=== PATIENT | male | born 1950 | race Caucasian/White ===

== ENCOUNTER → 2016-07-29 | Outpatient (CLI) | payer MEDICARE ==
[~2016-07-29] VITALS: Ht 175.3 cm; Wt 108.8 kg
[~2016-07-29] MED LIST: ATOR1TAB21 PO; NAPR500T2 PO; NEXI20GR PO; NS 1,000 ML IV ONE; VITA200016 PO
[2016-07-29 10:40] VITALS: BP 143/70
== END | disposition home or self-care (01) ==
LOC: M OPP 08:15
PROVIDERS: ATTEND Internal Medicine Gastroenterology
DX: Z12.11 Encounter for screening for malignant neoplasm of colon (principal); D12.5 Benign neoplasm of sigmoid colon; D12.3 Benign neoplasm of transverse colon; K57.30 Diverticulosis of large intestine without perforation or abscess without bleeding; K64.4 Residual hemorrhoidal skin tags; K64.8 Other hemorrhoids; Z86.010 Personal history of colon polyps; E78.5 Hyperlipidemia, unspecified; R12 Heartburn; R73.03 Prediabetes; K21.9 Gastro-esophageal reflux disease without esophagitis; Z79.899 Other long term (current) drug therapy; Z80.3 Family history of malignant neoplasm of breast

== ENCOUNTER → 2018-07-21 | Outpatient (CLI) | payer MEDICARE ==
[~2018-07-21] MED LIST changes: +NAPR-885 PO; -NAPR500T2 PO; -NS 1,000 ML IV ONE
--- NOTE | 2018-07-21 16:32 | REP ---
Right shoulder three views History: Pain There is no acute fracture or dislocation. The glenohumeral joint space is normal in appearance. There is mild narrowing of the acromioclavicular joint space. Impression: Degenerative change as described above. Electronically Signed by Patricio Beauchamp MD 07/21/2018 04:23 P
== END ==
LOC: M WUC 16:00
PROVIDERS: ATTEND Physician Assistant
DX: M19.011 Primary osteoarthritis, right shoulder (principal)

== ENCOUNTER → 2019-10-14 | Outpatient (REF) | payer MEDICARE ==
[~2019-10-14] MED LIST changes: +LISI10TA15 PO; +OMEP1CAP73 PO
== END ==
LOC: M LAB REF 18:59
PROVIDERS: ATTEND Physician Assistant
DX: N45.1 Epididymitis (principal)

== ENCOUNTER → 2019-10-26 | Outpatient (CLI) | payer MEDICARE ==
--- NOTE | 2019-11-11 11:55 | REP ---
SCROTAL ULTRASOUND CLINICAL: Epididymitis. TECHNIQUE: Real-time mandujano scale and color Doppler evaluation using linear high frequency transducer. COMPARISON: None. FINDINGS: The bilateral testicles are normal in appearance and vascularity without torsion, infectious/inflammatory process, or mass lesion. Small bilateral hydroceles are identified. A simple right epididymal cyst measures 5 x 3 x 3 mm. Varicoceles are noted bilaterally measuring up to 4.2 mm on Valsalva on the right and 4.3 mm on Valsalva on the left. There is a somewhat heterogeneous hypoechoic mass-like area at the left epididymal tail measuring 14 x 15 x 15 mm with some elements of vascularity, but does not appear hyperemic. Right testicle measures 4.1 x 2.3 x 3.2 cm. Left testicle measures 3.9 x 2.5 x 2.7 cm. IMPRESSION: * Hypoechoic heterogeneous mildly vascular mass-like area at the left epididymal tail. Finding is nonspecific. No prior examinations are available for comparison. Differential diagnosis includes, but is not limited to sequela of prior epididymitis, as well as mass lesion. * Bilateral varicoceles. * Small nonspecific incidental bilateral hydroceles and incidental simple right epididymal cyst. MTDD
== END ==
LOC: M RAD 09:47
PROVIDERS: ATTEND Physician Assistant
DX: N45.1 Epididymitis (principal); N43.3 Hydrocele, unspecified

== ENCOUNTER → 2019-11-06 | Outpatient (CLI) | payer MEDICARE | LOC: M LABSMTC 10:39 | PROVIDERS: ATTEND Anesthesiology | DX: Z01.812 Encounter for preprocedural laboratory examination (principal); Z20.828 Contact with and (suspected) exposure to other viral communicable diseases | CPT/HCPCS: C9803; U0003 ==

== ENCOUNTER 2019-11-11 10:24 | Day surgery (SDC) | payer MEDICARE ==
[~2019-11-11] VITALS: Ht 175.3 cm; Wt 96.2 kg
[~2019-11-11 10:24] MED LIST changes: +LIDOCAINE 2% 100MG/5ML SDV (FOR ANES.) As Ordered ONE; +NS 1,000 ML IV ONE; +propofoL 200 MG/20 ML VIAL As Ordered ONE
--- NOTE | 2019-11-11 11:36 | ROOR ---
Patient Name: Jayden Richardson Procedure Date: 11/11/2019 11:14 AM Date of : 1950 Age: 69 Room: [facility] Gender: Male Note Status: Finalized Procedure: Upper GI endoscopy Indications: Heartburn Providers: Tyler RANDLE MD Referring MD: MARY HENDERSON MD Requesting Provider: Medicines: Monitored Anesthesia Care Complications: No immediate complications. Procedure: Pre-Anesthesia Assessment: - The heart rate, respiratory rate, oxygen saturations, blood pressure, adequacy of pulmonary ventilation, and response to care were monitored throughout the procedure. The Endoscope was introduced through the mouth, and advanced to the second part of duodenum. The upper GI endoscopy was accomplished without difficulty. The patient tolerated the procedure well. Findings: Moderately severe esophagitis was found at the gastroesophageal junction. Two cratered esophageal ulcers with no bleeding were found at the gastroesophageal junction. Biopsies were taken with a cold forceps for histology. Scattered moderate inflammation characterized by erosions and erythema was found in the gastric antrum. Biopsies were taken with a cold forceps for histology. A small hiatal hernia was present. The exam was otherwise without abnormality. Impression: - Moderate to severe severe ulcerative esophagitis. Biopsied. - Moderate antral gastritis. Biopsied. - Small hiatal hernia. - Two small duodenal lipomas. - The examination was otherwise normal. Recommendation: - Use Prilosec (omeprazole) 40 mg PO daily. - Take omeprazole EVERY DAY. - No ibuprofen, naproxen, or other non-steroidal anti-inflammatory drugs. - Telephone endoscopist for pathology results in 2 weeks. Tyler Randle MD Tyler RANDLE MD 11/11/2019 11:35:07 AM Electronically signed by Tyler RANDLE MD Number of Addenda: 0 Note Initiated On: 11/11/2019 11:14 AM Estimated Blood Loss: Estimated blood loss: none.
[2019-11-11] MEDS ORDERED: propofoL 200 MG/20 ML VIAL As Ordered ONE (11:41)
--- NOTE | 2019-11-11 11:48 | ROOR ---
Patient Name: Jayden Richardson Procedure Date: 11/11/2019 11:15 AM Date of : 1950 Age: 69 Room: [facility] Gender: Male Note Status: Finalized Procedure: Colonoscopy Indications: High risk colon cancer surveillance: Personal history of colonic polyps Providers: Tyler RANDLE MD Referring MD: MARY HENDERSON MD Requesting Provider: Medicines: Monitored Anesthesia Care Complications: No immediate complications. Procedure: Pre-Anesthesia Assessment: - The heart rate, respiratory rate, oxygen saturations, blood pressure, adequacy of pulmonary ventilation, and response to care were monitored throughout the procedure. The Colonoscope was introduced through the anus and advanced to the terminal ileum, with identification of the appendiceal orifice and IC valve. The colonoscopy was performed without difficulty. The patient tolerated the procedure well. The quality of the bowel preparation was fair. Findings: The perianal and digital rectal examinations were normal. Mild sigmoid diverticulosis and small internal hemorrhoids. The entire examined colon appeared normal on direct and retroflexion views. Impression: - Preparation of the colon was fair. - Mild sigmoid diverticulosis and small internal hemorrhoids. - The entire examined colon is otherwise normal on direct and retroflexion views. - No specimens collected. Recommendation: - Repeat colonoscopy in 5 years for surveillance. Tyler Randle MD Tyler RANDLE MD 11/11/2019 11:47:30 AM Electronically signed by Tyler RANDLE MD Number of Addenda: 0 Note Initiated On: 11/11/2019 11:15 AM Estimated Blood Loss: Estimated blood loss: none.
[2019-11-11 12:10] VITALS: BP 109/70
== END 2019-11-11 12:11 | disposition home or self-care (01) ==
LOC: M OPP 10:24
PROVIDERS: ATTEND Internal Medicine Gastroenterology
DX: Z12.11 Encounter for screening for malignant neoplasm of colon (principal); Z86.010 Personal history of colon polyps; K21.9 Gastro-esophageal reflux disease without esophagitis; K22.10 Ulcer of esophagus without bleeding; K29.70 Gastritis, unspecified, without bleeding; K44.9 Diaphragmatic hernia without obstruction or gangrene; R12 Heartburn; K57.30 Diverticulosis of large intestine without perforation or abscess without bleeding; I51.9 Heart disease, unspecified; Z79.899 Other long term (current) drug therapy
CPT/HCPCS: 43239; 88305; G0105

== ENCOUNTER → 2020-03-03 | Outpatient (CLI) | payer MEDICARE ==
[~2020-03-03] MED LIST changes: -LIDOCAINE 2% 100MG/5ML SDV (FOR ANES.) As Ordered ONE; -NS 1,000 ML IV ONE; -propofoL 200 MG/20 ML VIAL As Ordered ONE
[2020-03-03 19:23] LABS: APPEARANCE, URINE CLEAR (CLEAR); BACTERIA, URINE AUTO NEGATIVE (NEGATIVE); BILIRUBIN, URINE AUTO NEGATIVE (NEGATIVE); BLOOD, URINE BLOOD NEGATIVE (NEGATIVE); COLOR, URINE YELLOW (YELLOW); GLUCOSE, URINE (UA) AUTO NEGATIVE (NEGATIVE); KETONE, URINE AUTO NEGATIVE (NEGATIVE); LEUKOCYTE ESTERASE, URINE AUTO NEGATIVE (NEGATIVE); NITRITE, URINE AUTO NEGATIVE (NEGATIVE); PROTEIN, URINE AUTO NEGATIVE (NEGATIVE); RBC, URINE AUTO 1 /HPF (0-3); SPECIFIC GRAVITY URINE AUTO 1.018 (1.002-1.035); SQUAMOUS EPITHELIAL CELL UR AU 0 /HPF (0-6); UROBILINOGEN, URINE AUTO 0.2 mg/dL (0.0-2.0); WBC, URINE AUTO 0 /HPF (0-3)
== END ==
LOC: M WUC 15:32
PROVIDERS: ATTEND Physician Assistant
DX: R31.21 Asymptomatic microscopic hematuria (principal)

== ENCOUNTER → 2020-05-28 | Outpatient (CLI) | payer MEDICARE ==
[~2020-05-28] MED LIST changes: +CALC-132 PO; +CVS1CAP2 PO; +D31000TA2 PO; +OMEP40CA97 PO; +VITMTA PO
== END ==
LOC: M LABSMTC 09:57
PROVIDERS: ATTEND Anesthesiology
DX: Z01.812 Encounter for preprocedural laboratory examination (principal); Z20.828 Contact with and (suspected) exposure to other viral communicable diseases

== ENCOUNTER 2020-06-02 12:56 | Day surgery (SDC) | payer MEDICARE ==
[~2020-06-02] VITALS: Ht 175.3 cm; Wt 106.8 kg
[~2020-06-02 12:56] MED LIST changes: +LIDOCAINE 2% 100MG/5ML SDV (FOR ANES.) As Ordered ONE; +NS 1,000 ML IV ONE; +propofoL 200 MG/20 ML VIAL As Ordered ONE
[2020-06-02] MEDS ORDERED: fentaNYL 100 MCG/2 ML INJECTION (J3010) As Ordered ONE (13:20)
--- NOTE | 2020-06-02 13:37 | ROOR ---
Patient Name: Jayden Richardson Procedure Date: 06/02/2020 1:18 PM Date of : 1950 Age: 70 Room: [facility] Gender: Male Note Status: Finalized Procedure: Upper GI endoscopy Indications: Heartburn, Follow-up of Wagner's esophagus Providers: Tyler COOPER MD Referring MD: Cherelle Cullen NP Requesting Provider: Medicines: Monitored Anesthesia Care Complications: No immediate complications. Procedure: Pre-Anesthesia Assessment: - The heart rate, respiratory rate, oxygen saturations, blood pressure, adequacy of pulmonary ventilation, and response to care were monitored throughout the procedure. The Endoscope was introduced through the mouth, and advanced to the second part of duodenum. The upper GI endoscopy was accomplished without difficulty. The patient tolerated the procedure well. Findings: There were esophageal mucosal changes consistent with short-segment Wagner's esophagus present in the lower third of the esophagus. The maximum longitudinal extent of these mucosal changes was 2 cm in length. Mucosa was biopsied with a cold forceps for histology from 37 to 39 cm from the incisors. A total of 2 specimen bottles were sent to pathology. A medium-sized hiatal hernia was present. The exam of the stomach was otherwise normal. There was a small lipoma in the second portion of the duodenum. The exam of the duodenum was otherwise normal. Impression: - Esophageal mucosal changes consistent with short-segment Wagner's esophagus. Biopsied. - Medium-sized hiatal hernia. - Small duodenal lipoma. - The examination was otherwise normal. Recommendation: - Await pathology results. - Use Prilosec (omeprazole) 40 mg PO daily indefinitely. - Repeat upper endoscopy in 3 years for surveillance of Wagner's esophagus. Procedure Code(s): --- Professional --- 70978, Esophagogastroduodenoscopy, flexible, transoral; with biopsy, single or multiple Diagnosis Code(s): --- Professional --- R12, Heartburn D17.5, Benign lipomatous neoplasm of intra-abdominal organs K44.9, Diaphragmatic hernia without obstruction or gangrene K22.70, Wagner's esophagus without dysplasia CPT copyright 2019 [employer] [place] [employer]. All rights reserved. The codes documented in this report are preliminary and upon arboriculture teacher review may be revised to meet current compliance requirements. Tyler Cooper MD Tyler COOPER MD 06/02/2020 1:37:06 PM Electronically signed by Tyler COOPER MD Number of Addenda: 0 Note Initiated On: 06/02/2020 1:18 PM Estimated Blood Loss: Estimated blood loss: none.
[2020-06-02 14:00] VITALS: BP 141/79
== END 2020-06-02 14:08 | disposition home or self-care (01) ==
LOC: M OPP 12:56
PROVIDERS: ATTEND Internal Medicine Gastroenterology
DX: K44.9 Diaphragmatic hernia without obstruction or gangrene (principal); D17.5 Benign lipomatous neoplasm of intra-abdominal organs; K29.70 Gastritis, unspecified, without bleeding; K22.70 Barrett's esophagus without dysplasia; R12 Heartburn; Z79.899 Other long term (current) drug therapy
CPT/HCPCS: 43239; 88305; J3010

== ENCOUNTER → 2020-12-22 | Outpatient (REF) | payer MEDICARE ==
[~2020-12-22] MED LIST changes: -LIDOCAINE 2% 100MG/5ML SDV (FOR ANES.) As Ordered ONE; -NS 1,000 ML IV ONE; +OMEP40CA4 PO; -OMEP40CA97 PO; -propofoL 200 MG/20 ML VIAL As Ordered ONE
== END ==
LOC: M LAB REF 16:33
PROVIDERS: ATTEND Registered Nurse
DX: R35.0 Frequency of micturition (principal); R30.0 Dysuria

== ENCOUNTER 2020-12-29 11:01 | Observation (INO) | payer MEDICARE ==
[~2020-12-29] VITALS: Ht 175.3 cm; Wt 83.0 kg
[~2020-12-29 11:01] MED LIST changes: +lisinopriL 40 MG TAB PO SCH
[2020-12-29 12:08] LABS: VENOUS BASE EXCESS -1.8 (-2.0-2.0); VENOUS HCO3 22.8 MEQ/L (23.0-27.0); VENOUS O2 SATURATION 98.4 % (60.0-80.0); VENOUS PARTIAL PRESSURE CO2 38.7 mmHg (38.0-50.0); VENOUS PARTIAL PRESSURE O2 112.6 mmHg (30.0-50.0); VENOUS PH 7.389 UNITS (7.330-7.430)
[2020-12-29 12:12] LABS: BASO # 0.1 10^3/uL (0.0-0.2); EOS # 0.2 10^3/uL (0.0-0.5); EOS % 2.2 % (0.0-3.0); HEMATOCRIT 40.1 % (42.0-52.0); LYMPH # 1.7 10^3/uL (1.5-5.0); LYMPH % 21.5 % (24.0-44.0); MEAN CORPUSCULAR HEMOGLOBIN 29.4 pg (27.0-33.0); MEAN CORPUSCULAR HGB CONC 34.9 g/dl (32.0-36.5); MEAN CORPUSCULAR VOLUME 84.2 fl (80.0-96.0); MONO # 0.8 10^3/uL (0.0-0.8); MONO % 9.7 % (2.0-8.0); PLATELET COUNT, AUTOMATED 220 10^3/uL (150-450); RED BLOOD COUNT 4.76 10^6/uL (4.30-6.10); WHITE BLOOD COUNT 7.7 10^3/uL (4.0-10.0)
[2020-12-29 12:59] LABS: ACETONE/KETONE 20.49 MG/DL (<2.81); ALBUMIN 3.7 GM/DL (3.2-5.2); BILIRUBIN,DIRECT 0.2 MG/DL (0.0-0.2); BILIRUBIN,TOTAL 0.7 MG/DL (0.2-1.0); CALCIUM LEVEL 9.7 MG/DL (8.8-10.2); CREATININE FOR GFR 1.94 MG/DL (0.70-1.30); GLOMERULAR FILTRATION RATE 36.6 (>42); POTASSIUM SERUM 5.3 MEQ/L (3.5-5.1); TOTAL PROTEIN 7.5 GM/DL (6.4-8.2)
[2020-12-29] MEDS ORDERED: HumuLIN R (REGULAR) INSULIN (NovoLIN R) **100U/ML** PER UNIT IV ONE (14:45)
[2020-12-29] MEDS ORDERED: NS 1,000 ML IV ONE ×2 (14:45→17:10)
--- NOTE | 2020-12-29 14:55 | REP ---
INDICATION: CHEST PAIN COMPARISON: 06/19/2012 TECHNIQUE: Portable AP view of the chest FINDINGS: The mediastinum and cardiac silhouette are stable and within normal limits for portable technique. The lung aguero demonstrate chronic stable changes without acute consolidation, effusion, or pneumothorax. Skeletal structures are intact. IMPRESSION: No acute cardiopulmonary process appreciated. <Electronically signed by Berhane Oliveira > 12/29/20 [id number]
[2020-12-29] MEDS ORDERED: BASA100I SC (16:48)
[2020-12-29] MEDS ORDERED: ACETAMINOPHEN TAB 650MG DOSE (2X325MG) PO PRN (17:05)
[2020-12-29] MEDS ORDERED: DEXTROSE 50% 50 ML SYRINGE IV PRN (17:05)
[2020-12-29] MEDS ORDERED: GLUCAGON INJ 1MG VIAL SC PRN (17:05)
[2020-12-29] MEDS ORDERED: GLUCOSE 4GM CHEW TABLET PO PRN (17:05)
--- OUTSIDE RECORDS SUMMARY | 2020-12-29 17:24 | CCD | Continuity of Care Document ---
Author Author Urology Resource Schedule, T homas A Organization Unknown Address [address] [place] [address] Phone [phone] Care Team Providers Care Cabinetmaker Maintenance Name Role Phone Bernabe Bullard DO AUTM Unavailable [facility] AUTM Unavailable Problems Active Problems Provider Date Screening for malignant neoplasm of prostate BRITTANY Vang Onset: 04/12/2020 Microscopic hematuria BRITTANY Doe Onset: 02/11 Pain in testicle BRITTANY Doe Onset: 2020 Social History Type Date Description Comments Sex Unknown Tobacco Use Start: Unknown Never Smoked Cigarettes Tobacco Use Start: Unknown Never Smoked Cigars Tobacco Use Start: Unknown Never Smoked A Pipe Tobacco Use Start: Unknown Never Used Smokeless Tobacco ETOH Use Consumed 2-3 beers per week Tobacco Use Start: Unknown Patient has never smoked Smoking Status Reviewed: 04/12/20 Patient has never smoked Allergies and adverse reactions Active Allergies Criticality Reaction | Severity Comments Date NKDA Unable to assess criticality 01/04/2020 NKFA Unable to assess criticality 01/04/2020 NKEA Unable to assess criticality 01/04/2020 Medications Active Medications SIG Qnty Indications Ordering Provide r Date Atorvastatin Calcium 20mg Tablets Ck Howell, Lisinopril-Hydrochlorothiazide 10-12.5mg Tablets Ck Howell, Omeprazole 40mg Capsules Tyler Reyes MD Immunizations Description No Information Available Vital Signs Date Vital Result Comment 04/12/2020 1:02pm BP Systolic 139 mmHg BP Diastolic 74 mmHg Heart Rate 87 /min Respiratory Rate 20 /min O2 % BldC Oximetry 94 % 03/01/2020 8:39am BP Systolic 152 mmHg BP Diastolic 80 mmHg Heart Rate 85 /min Body Temperature 97.0 F Respiratory Rate 18 /min O2 % BldC Oximetry 98 % Weight 228.50 lb Weight 103.648 kg Height 69 inches 5'9" BMI (Body Mass Index) 33.7 kg/m2 BSA (Body Surface Area) 2.19 m2 Results Description No Information Available Procedures Description No Information Available Medical Devices Description No Information Available Encounters Description No Information Available Assessments Description No Information Available Plan of Treatment 04/12/2020 - BRITTANY Doe* N50.812 Left testicular pain* Comments: * 69-year-old male with h/o left testicular mass/pain presents to the clinic 8 weeks status post left orchiectomy presents today for postoperative follow up. Patient is doing well since orchiectomy from a standpoint without any issues.Physical examination in office today revealed that the surgical incision is well healed. 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 Patient made aware that his pathology revealed benign tumor, otherwise unremarkable. Patient voiced understanding and agreement with plan of care. * Follow up:* PRN * Z12.5 Encounter for screening for malignant neoplasm of prostate* Comments:* Patient made aware that he should have annual prostate screening. Patient had a TARA at his first encounter with Dr. Becerra in December 2019.he recently had a PSA on 04/01/2020 at [facility] which was 0.96. He will follow up in December 2020 for routine prostate cancer screening.Patient voiced understanding and agreement with plan of care. * Follow up:* 8 months (December 2020) Functional Status Description No Information Available Mental Status Description No Information Available Referrals Description No Information Available
--- OUTSIDE RECORDS SUMMARY | 2020-12-29 17:24 | CCD | Continuity of Care Document ---
Author Author Jayden CULLEN Organization Unknown Address [address] [facility] [address] [place] [address] Phone [phone] Care Team Providers Care Scale Tester Name Role Phone Cherelle Cullen AUTM [phone] Problems Active Problems Provider Date Essential hypertension GEOVANNY Segal Onset: 03/22/2020 Pure hypercholesterolemia GEOVANNY Segal Onset: 021 Gastroesophageal reflux disease GEOVANNY Segal Onset: 0 03/22/2020 Social History Type Date Description Comments Sex Unknown ETOH Use Occasionally consumes beer 3-4 b eers a month Tobacco Use Start: Unknown Patient has never smoked Exercise Type/Frequency Exercises sporadically d oes a lot of stretching and low impact exercise Guns in Home No Allergies and adverse reactions Active Allergies Criticality Reaction | Severity Comments Date Environmental Unable to assess criticality 03/22/2020 Medications Active Medications SIG Qnty Indications Ordering Provide r Date Tamsulosin HCL 0.4mg Capsules 1 daily 1 hour after same meal by mouth 30caps Alexi Mclaughlin MD 12/22/2020 Atorvastatin Calcium 20mg Tablets 1 by mouth every day 30tabs Shanae Benoit M.D. 03/22/19 21 Naproxen 500mg Tablets Take One Tablet By Mouth Every 12 Hours as Needed With Food Or Prilosec 60tabs BRITTANY King JR 03/22/2020 Vitamin D3 Super Strength 50mcg (2000 Ut) Tablets 1 by mouth every day José Carmona 03/22/2020 Vitamin C 500mg Tablets 1 by mouth every day Alexi Mclaughlin MD 03/22/2020 Lisinopril-Hydrochlorothiazide 10-12.5mg Tablets 1 qd po Unknown Omeprazole 40mg Capsules DR 1 qd nitan Tyler Cooper MD Immunizations Description No Information Available Vital Signs Date Vital Result Comment 12/22/2020 1:54pm BP Systolic 102 mmHg RT Arm BP Diastolic 60 mmHg RT Arm Heart Rate 92 /min Height 69.25 inches 5'9.25" Weight 215.25 lb BMI (Body Mass Index) 31.6 kg/m2 09/20/2020 1:24pm BP Systolic 118 mmHg BP Diastolic 68 mmHg Heart Rate 94 /min Height 69.25 inches 5'9.25" Weight 235.00 lb O2 % BldC Oximetry 98 % RM Air BMI (Body Mass Index) 34.4 kg/m2 Results Test Acquired Date Facility Test Result H/L Range Note Ua Dipstick Only 12/22/2020 [facility] Gym Teacher: [place] [address] [phone] Urine Color YELLOW Yellow Urine Appearance CLEAR Clear Urine PH 6.0 units 5.0 - 9.0 Urine Specific [place] 1.010 1.005 - 1.030 Urine Leukocytes NEGATIVE Negative Urine Blood LARGE Abnormal Negative Urine Protein NEGATIVE Negative -Trace Urine Glucose 1000 mg/dL mg/dL Abnormal Negative Urine Nitrite NEGATIVE Negative Urine Ketone NEGATIVE mg/dL Negative Urine Bilirubin NEGATIVE Negative Urine Urobilinogen 0.2 mg/dL 0.2 - 1.0 Laboratory test finding 12/22/2020 [facility] [address] [place] [address] [phone] Urine Culture <pending> Basic Metabolic Panel 09/20/2020 [facility] Gym Teacher: [place] [address] [phone] Glucose 153 mg/dL High 74 - 99 1 BUN 32 mg/dL High 7 - 18 Creatinine 1.6 mg/dL High 0.6 - 1.3 Sodium 142 mEq/L 136 - 145 Potassium 4.0 mEq/L 3.5 - 5.1 Chloride 105 mEq/L 98 - 107 Carbon Dioxide 28 mEq/L 21 - 32 Calcium 9.9 mg/dL 8.5 - 10.1 GFR 43 mL/min Low >60 GFR 52 mL/min Low >60 2 1 100-125 mg/dL PRE-DIABET ES/FASTING >126 mg/dL DIABETES/FASTING 2 CHRONIC KIDNEY DISEASE STAGI NG PER NKF STAGE I & II GFR >= 60 NORMAL TO MILDLY DECREASED STAGE III GFR 30-59 MODERATELY DECREASED STAGE IV GFR 15-29 SEVERELY DECREASED STAGE V GFR <15 VERY LITTLE GFR LEFT ESRD GFR <15 ON TRANSVERSE ABDOMINAL MUSCLE NURSE Procedures Date Code Description Status 09/20/2020 37374 Office/Outpatient Established Lo w MDM 20-29 Min Completed Medical Devices Description No Information Available Encounters Type Date Location Provider Dx Diagnosis Office Visit 09/20/2020 1:20p [facility] BRITTANY Rothman JR I10 Essential (primary) hyperten donavan E78.00 Pure hypercholesterolemia, u nspecified K21.9 Gastro-esophageal reflux dis ease without esophagitis Z90.79 Acquired absence of other ge nital organ(s) E66.09 Other obesity due to excess calories D17.1 Benign lipomatous neoplasm o f skin, subcu of trunk Z68.33 Body mass index [BMI] 33.0-3 3.9, adult Assessments Date Code Description Provider 12/22/2020 R35.0 Frequency of micturition JOE SegalP 12/22/2020 R30.0 Dysuria Cherelle Cullen [facility] 09/20/2020 I10 Essential (primary) hypertension BRITTANY King JR 09/20/2020 E78.00 Pure hypercholesterolemia, unspe cified BRITTANY King JR 09/20/2020 K21.9 Gastro-esophageal reflux disease without esophagitis BRITTANY King JR 09/20/2020 Z90.79 Acquired absence of other genita l organ(s) BRITTANY King JR 09/20/2020 E66.09 Other obesity due to excess jos germaine BRITTANY King JR 09/20/2020 D17.1 Benign lipomatous ne oplasm of skin and subcutaneous tissue of trunk BRITTANY King JR 09/20/2020 Z68.33 Body mass index [BMI] 33.0-33.9, adult BRITTANY King JR Plan of Treatment Future Appointment(s):* 03/23/2021 1:20 pm - Nurse #2 at [facility] * 03/23/2021 1:40 pm - GEOVANNY Segal at [facility] 12/22/2020 - GEOVANNY Segal* R35.0 Frequency of micturition * R30.0 Dysuria * All * New Medication:* Tamsulosin HCL 0.4 mg - 1 daily 1 hour after same meal by mouth Functional Status Description No Information Available Mental Status Description No Information Available Referrals Description No Information Available
--- OUTSIDE RECORDS SUMMARY | 2020-12-29 17:24 | CCD ---
Continuity of Care Document (CCD) Created on: 12/27/2020 Jayden Richardson External Reference #: [id number] : [id number] Sex: Male Author Author Jayden PHILIP Organization Unknown Address [address] [facility] [address] [place] [address] Phone [phone] Care Team Providers Care Production Engine Repairer Name Role Phone Cherelle Philip AUTM [phone] Problems Active Problems Provider Date Essential hypertension [...] SIG Qnty Indications Ordering Provide r Date Lantus Solostar 100U nit/ML Solution Pen-Inject inject 19 units subcutaneously daily 45ml Melody ebenezer Mclaughlin MD 12/25/2020 Freestyle Lite Blood Glucose Monitoring System Device use as directed to test three times a day and as neede d dispense #1 1units Alexi Mclaughlin MD 12/25/2020 Freestyle Lite Test Strips test three times a day and as needed 100units Alexi Mclaughlin MD 12/25/2020 Lancet Device Misc use as directed for bs monitoring three times a day and as needed 1units Luis Alfredo Mclaughlin MD 12/25/2020 Lancets Thin Misc use as directed three times a day and as needed 100units Alexi Mclaughlin MD 12/25/2020 Atorvastatin Calcium 20mg Tablets 1 by mouth [...] Unknown Omeprazole 40mg Capsules DR 1 qd prn Tyler Cooper MD History Medications Tamsulosin HCL 0.4mg Capsules 1 daily 1 hour after same meal by mouth 30caps Alexi Mclaughlin MD 12/22/2020 - 12/25/2020 Immunizations CPT Code Status Date Vaccine Lot # [id number] Given 12/27/2020 Influenza Virus Vaccine, Quadrivalent, Slit Virus, Im Use [id number] Vital Signs Date Vital Result Comment 12/27/2020 9:05am BP Systolic 104 mmHg BP Diastolic 60 mmHg Heart Rate 94 /min Height 69.25 inches 5'9.25" Weight 212.00 lb BMI (Body Mass Index) 31.1 kg/m2 12/22/2020 1:54pm BP Systolic 102 mmHg RT Arm BP Diastolic 60 mmHg RT Arm Heart Rate 92 /min Height 69.25 inches 5'9.25" Weight 215.25 lb BMI (Body Mass Index) 31.6 kg/m2 Results Test Acquired Date Facility Test Result H/L Range Note Basic Metabolic Panel 12/25/2020 [facility] Freight Adjuster: [place] [address] [phone] Glucose 644 mg/dL Critical high 74 - 99 1 BUN 48 mg/dL High 7 - 18 Creatinine 2.1 mg/dL High 0.6 - 1.3 Sodium 131 mEq/L Low 136 - 145 2 Potassium 4.9 mEq/L 3.5 - 5.1 Chloride 92 mEq/L Low 98 - 107 Carbon Dioxide 26 mEq/L 21 - 32 Calcium 10.1 mg/dL 8.5 - 10.1 GFR 31 mL/min Low >60 GFR 38 mL/min Low >60 3 Ua Dipstick Only 12/25/2020 [facility] , Freight Adjuster: [place] [address] [phone] Urine Color YELLOW Yellow Urine Appearance CLEAR Clear Urine PH 5.0 units 5.0 - 9.0 Urine Specific [place] 1.015 1.005 - 1.030 Urine Leukocytes NEGATIVE Negative Urine Blood NEGATIVE Negative Urine Protein NEGATIVE Negative -Trace Urine Glucose >=2000 mg/dL mg/dL Abnormal Negative Urine Nitrite NEGATIVE Negative Urine Ketone 15 mg/dL mg/dL Abnormal Negative Urine Bilirubin NEGATIVE Negative Urine Urobilinogen 0.2 mg/dL 0.2 - 1.0 A1c 12/25/2020 [facility] , Freight Adjuster: [place] [address] [phone] Hba1c 13.1 % High <5.7 4 Est Avg Glucose 329 mg/dL High 60 - 110 Ua Dipstick Only 12/22/2020 [facility] , Freight Adjuster: Dr Alexi [place] [address] [phone] Urine Color YELLOW Yellow Urine Appearance CLEAR Clear Urine PH 6.0 units 5.0 - 9.0 Urine Specific [place] 1.010 1.005 - 1.030 Urine Leukocytes NEGATIVE Negative Urine Blood LARGE Abnormal Negative Urine Protein NEGATIVE Negative -Trace Urine Glucose 1000 mg/dL mg/dL Abnormal Negative Urine Nitrite NEGATIVE Negative Urine Ketone NEGATIVE mg/dL Negative Urine Bilirubin NEGATIVE Negative Urine Urobilinogen 0.2 mg/dL 0.2 - 1.0 Laboratory test finding 12/22/2020 [facility] [address] [place] [address] [phone] Urine Culture FULL REPORT IN L <SEE NOTE> Normal 5 Basic Metabolic Panel 09/20/2020 [facility] Freight Adjuster: Dr Alexi [place] [address] [phone] Glucose 153 mg/dL High 74 - 99 6 BUN 32 mg/dL High 7 - 18 Creatinine 1.6 mg/dL High 0.6 - 1.3 Sodium 142 mEq/L 136 - 145 Potassium 4.0 mEq/L 3.5 - 5.1 Chloride 105 mEq/L 98 - 107 Carbon Dioxide 28 mEq/L 21 - 32 Calcium 9.9 mg/dL 8.5 - 10.1 GFR 43 mL/min Low >60 GFR 52 mL/min Low >60 7 1 CRITICAL: cherelle philip notified NOTE: DILUTED AND VERIFIED 100-125 mg/dL PRE-DIABETES/FASTING >126 mg/dL DIABETES/FASTING 2 NOTE: RESULT VERIFIED. 3 CHRONIC KIDNEY DISEASE STAGI NG PER NKF STAGE I & II GFR >= 60 NORMAL TO MILDLY DECREASED STAGE III GFR 30-59 MODERATELY DECREASED STAGE IV GFR 15-29 SEVERELY DECREASED STAGE V GFR <15 VERY LITTLE GFR LEFT ESRD GFR <15 ON FINANCIAL SYSTEMS ANALYST 4 Lab Result Notes: Pre-Diabetes 5.7 - 6.4 % Diabetes = or > 6.5% 5 FULL REPORT IN LAB NOTES (eC W and Medent). NO GROWTH 6 100-125 mg/dL PRE-DIABET ES/FASTING >126 mg/dL DIABETES/FASTING 7 CHRONIC KIDNEY DISEASE STAGI NG PER NKF STAGE I & II GFR >= 60 NORMAL TO MILDLY DECREASED STAGE III GFR 30-59 MODERATELY DECREASED STAGE IV GFR 15-29 SEVERELY DECREASED STAGE V GFR <15 VERY LITTLE GFR LEFT ESRD GFR <15 ON FINANCIAL SYSTEMS ANALYST Procedures Date Code Description Status 09/20/2020 16077 Office/Outpatient Established Lo w MDM 20-29 Min Completed Medical Devices Description No Information Available Encounters Type Date Location Provider Dx Diagnosis Office Visit 09/20/2020 1:20p [facility] Darrell Gordon JR, PA I10 Essential (primary) hyperten donavan E78.00 Pure hypercholesterolemia, u nspecified K21.9 Gastro-esophageal reflux dis ease without esophagitis Z90.79 Acquired absence of other ge nital organ(s) E66.09 Other obesity due to excess calories D17.1 Benign lipomatous neoplasm o f skin, subcu of trunk Z68.33 Body mass index [BMI] 33.0-3 3.9, adult Assessments Date Code Description Provider 12/27/2020 E11.65 Type 2 diabetes mellitus with hy perglycemia GEOVANNY Segal 12/22/2020 R35.0 Frequency of micturition GEOVANNY Segal 12/22/2020 R30.0 Dysuria Cherelle Philip F BREAKER BOSS 09/20/2020 I10 Essential (primary) hypertension BRITTANY King [...] King JR Plan of Treatment Future Appointment(s):* 12/29/2020 9:40 am - GEOVANNY Segal at [facility] * 03/23/2021 1:20 pm - Nurse #2 at [facility] * 03/23/2021 1:40 pm - GEOVANNY Segal at [facility] 12/27/2020 - GEOVANNY Segal* E11.65 Type 2 diabetes mellitus with hyperglycemia* Comments:* RTC on Friday for monitor teaching. First dose of Lantus given today and discussed hypoglycemia sx at length. Recommend Lantus 19 units SQ once daily. Given a sample pen of Lantus, dietary guidance and is referred to Kadie Cary for dietary teaching. * Recommendations:* Will discuss eye examination and foot examination at next visit as well as obtain MAHESH. Already on a statin and QUIRINO. Functional Status Description No Information Available Mental Status Description No Information Available Referrals Refer to Reason for Referral Status Appt Date [facility] CONSULT FOR URINARY FREQUENCY Schedule d 01/03/2021 [address] , [facility] [place] [address] [phone]
--- OUTSIDE RECORDS SUMMARY | 2020-12-29 17:24 | CCD | Continuity of Care Document ---
Author Author Lab Schedule, Jayden Blanco Organization Unknown Address [address] [place] [address] Phone Unavailable Care Team Providers Care Dialysis Chief Equipment Technician Name Role Phone Cherelle Philip AUTM [phone] Problems Active Problems Provider Date Essential hypertension Cherelle Philip PROFESSOR OF SPECIAL EDUCATION Onset: 03/22/2020 Pure hypercholesterolemia Cherelle PhilipGEOVANNY Onset: 021 Gastroesophageal reflux disease Cherelle PhilipGEOVANNY Onset: 0 03/22/2020 Social History Type Date [...] inject 19 units subcutaneously daily 45ml Melody Mclaughlin MD 12/25/2020 Freestyle Lite Blood Glucose [...] Alexi Mclaughlin MD 12/22/2020 - 12/25/2020 Immunizations Description No Information Available Vital Signs [...] H/L Range Note Basic Metabolic Panel 12/25/2020 [facility] Fats And Oils Loader: [place] [address] [phone] Glucose 644 mg/dL Critical high 74 - [...] Low >60 3 Ua Dipstick Only 12/25/2020 [facility] , Fats And Oils Loader: [place] [address] [phone] Urine Color YELLOW Yellow Urine Appearance CLEAR Clear Urine PH 5.0 units 5.0 - 9.0 Urine Specific [place] 1.015 1.005 - 1.030 Urine Leukocytes NEGATIVE Negative Urine Blood NEGATIVE Negative Urine Protein NEGATIVE Negative -Trace Urine Glucose >=2000 mg/dL mg/dL Abnormal Negative Urine Nitrite NEGATIVE Negative Urine Ketone 15 mg/dL mg/dL Abnormal Negative Urine Bilirubin NEGATIVE Negative Urine Urobilinogen 0.2 mg/dL 0.2 - 1.0 A1c 12/25/2020 [facility] , Fats And Oils Loader: [place] [address] [phone] Hba1c 13.1 % High <5.7 4 Est Avg Glucose 329 mg/dL High 60 - 110 Ua Dipstick Only 12/22/2020 [facility] , Fats And Oils Loader: [place] [address] [phone] Urine Color YELLOW Yellow Urine Appearance CLEAR Clear Urine PH 6.0 units 5.0 - 9.0 Urine Specific [place] 1.010 1.005 - 1.030 Urine Leukocytes NEGATIVE Negative Urine Blood LARGE Abnormal Negative Urine Protein NEGATIVE Negative -Trace Urine Glucose 1000 mg/dL mg/dL Abnormal Negative Urine Nitrite NEGATIVE Negative Urine Ketone NEGATIVE mg/dL Negative Urine Bilirubin NEGATIVE Negative Urine Urobilinogen 0.2 mg/dL 0.2 - 1.0 Laboratory test finding 12/22/2020 [facility] [address] [place] [address] [phone] Urine Culture FULL REPORT IN L <SEE NOTE> Normal 5 Basic Metabolic Panel 09[facility]20/2020 [facility] Fats And Oils Loader: [place] [address] [phone] Glucose 153 mg/dL High 74 - 99 [...] LITTLE GFR LEFT ESRD GFR <15 ON TRANSITIONAL KINDERGARTEN TEACHER 4 Lab Result Notes: Pre-Diabetes 5.7 - [...] LITTLE GFR LEFT ESRD GFR <15 ON TRANSITIONAL KINDERGARTEN TEACHER Procedures Date Code Description Status 09/20/2020 75134 Office/Outpatient Established Lo w MDM 20-29 Min Completed Medical Devices Description No Information Available Encounters Type Date Location Provider Dx Diagnosis Office Visit 09/20/2020 1:20p [facility] Darrell Gordon JR PA I10 Essential (primary) hyperten donavan E78.00 Pure hypercholesterolemia, u nspecified K21.9 Gastro-esophageal reflux dis ease without esophagitis Z90.79 Acquired absence of other ge nital organ(s) E66.09 Other obesity due to excess calories D17.1 Benign lipomatous neoplasm o f skin, subcu of trunk Z68.33 Body mass index [BMI] 33.0-3 3.9, adult Assessments Date Code Description Provider 12/22/2020 R35.0 Frequency of micturition GEOVANNY Segal 12/22/2020 R30.0 Dysuria Alma Segal BIOINFORMATICS TECHNICIAN 09/20/2020 I10 Essential (primary) hypertension BRITTANY King [...] King JR Plan of Treatment Future Appointment(s):* 12/27/2020 9:00 am - GEOVANNY Segal at [facility] * 03/23/2021 1:20 pm - Nurse #2 at [facility] * 03/23/2021 1:40 pm - GEOVANNY Segal at [facility] Functional Status Description No Information Available Mental Status Description No Information Available Referrals Refer to Reason for Referral Status Appt Date [facility] CONSULT FOR URINARY FREQUENCY Created [id number] , [place] [address] [phone]
--- OUTSIDE RECORDS SUMMARY | 2020-12-29 17:24 | CCD | Continuity of Care Document ---
Author Author [facility], [facility] Organization Unknown Address [address] [place] [address] [place] [address] Phone [phone] Care Team Providers Care Land Surveying Survey Worker Name Role Phone Ck Howell MD [facility] [phone] Problems Description No Information Available Social History Type Date Description Comments Sex Unknown ETOH Use Occasionally consumes alcohol Tobacco Use Start: Unknown End: Unknown Patient is a former smoker Smoking Status Reviewed: 10/14/19 Patient is a former smoker Allergies, Adverse Reactions, Alerts Description No Known Drug Allergies Medications Active Medications SIG Qnty Indications Ordering Provide r Date Lisinopril Unknown Vitamin C Adult Gummies 125mg Chewtabs Unknown Atorvastatin Calcium 20mg Tablets Ck Howell MD Immunizations Description No Information Available Vital Signs Date Vital Result Comment 10/14/2019 3:12pm BP Systolic 137 mmHg BP Diastolic 83 mmHg Heart Rate 110 /min O2 % BldC Oximetry 98 % Body Temperature 98.5 F Weight 218.00 lb Height 69 inches 5'9" BMI (Body Mass Index) 32.2 kg/m2 Pain Level 1 05/20/2019 2:28pm BP Systolic 145 mmHg BP Diastolic 91 mmHg Heart Rate 108 /min Respiratory Rate 12 /min O2 % BldC Oximetry 96 % Body Temperature 98.2 F Weight 218.00 lb Height 69 inches 5'9" BMI (Body Mass Index) 32.2 kg/m2 Pain Level 0 Results Description No Information Available Procedures Description No Information Available Medical Devices Description No Information Available Encounters Description No Information Available Assessments Description No Information Available Plan of Treatment No Information Available Functional Status Description No Information Available Mental Status Description No Information Available Referrals Description No Information Available
--- OUTSIDE RECORDS SUMMARY | 2020-12-29 17:24 | CCD | Continuity of Care Document ---
Author Author Lab Schedule, Jayden Blanco Organization Unknown Address [address] [place] [address] Phone Unavailable Care Team Providers Care Box Sealing Machine Catcher Name Role Phone Cherelle Philip AUTM [phone] Problems Active Problems Provider Date Essential hypertension Cherelle Philip COMMERCIAL AGENT Onset: 03/22/2020 Pure hypercholesterolemia Cherelle PhilipGEOVANNY Onset: [...] H/L Range Note Basic Metabolic Panel 12/25/2020 [facility] Button Sewer Hand: [place] [address] [phone] Glucose 644 mg/dL Critical high 74 - [...] Low >60 3 Ua Dipstick Only 12/25/2020 [facility] , Button Sewer Hand: [place] [address] [phone] Urine Color YELLOW Yellow Urine Appearance CLEAR Clear Urine PH 5.0 units 5.0 - 9.0 Urine Specific [place] 1.015 1.005 - 1.030 Urine Leukocytes NEGATIVE Negative Urine Blood NEGATIVE Negative Urine Protein NEGATIVE Negative -Trace Urine Glucose >=2000 mg/dL mg/dL Abnormal Negative Urine Nitrite NEGATIVE Negative Urine Ketone 15 mg/dL mg/dL Abnormal Negative Urine Bilirubin NEGATIVE Negative Urine Urobilinogen 0.2 mg/dL 0.2 - 1.0 A1c 12/25/2020 [facility] , Button Sewer Hand: [place] [address] [phone] Hba1c 13.1 % High <5.7 4 Est Avg Glucose 329 mg/dL High 60 - 110 Ua Dipstick Only 12/22/2020 [facility] , Button Sewer Hand: [place] [address] [phone] Urine Color YELLOW Yellow Urine Appearance CLEAR Clear Urine PH 6.0 units 5.0 - 9.0 Urine Specific [place] 1.010 1.005 - 1.030 Urine Leukocytes NEGATIVE Negative Urine Blood LARGE Abnormal Negative Urine Protein NEGATIVE Negative -Trace Urine Glucose 1000 mg/dL mg/dL Abnormal Negative Urine Nitrite NEGATIVE Negative Urine Ketone NEGATIVE mg/dL Negative Urine Bilirubin NEGATIVE Negative Urine Urobilinogen 0.2 mg/dL 0.2 - 1.0 Laboratory test finding 12/22/2020 [facility] [address] [place] [address] [phone] Urine Culture FULL REPORT IN L <SEE NOTE> Normal 5 Basic Metabolic Panel 09/20/2020 [facility] Button Sewer Hand: [place] [address] [phone] Glucose 153 mg/dL High 74 - 99 [...] LITTLE GFR LEFT ESRD GFR <15 ON DIGITAL PRODUCTION MANAGER 4 Lab Result Notes: Pre-Diabetes 5.7 - [...] LITTLE GFR LEFT ESRD GFR <15 ON DIGITAL PRODUCTION MANAGER Procedures Date Code Description Status 09/20/2020 58934 Office/Outpatient Established Lo w MDM 20-29 Min Completed Medical Devices Description No Information Available Encounters Type Date Location Provider Dx Diagnosis Office Visit 09/20/2020 1:20p [facility] Darrell Gordon JR PA I10 [...] GEOVANNY Segal 12/22/2020 R30.0 Dysuria Alma Segal CORRECTIVE THERAPY AIDE 09/20/2020 I10 Essential (primary) hypertension BRITTANY King [...] 12/27/2020 9:00 am - GEOVANNY Segal at [facility] * 03/23/2021 1:20 pm - Nurse #2 at [facility] * 03/23/2021 1:40 pm - GEOVANNY Segal at [facility] Functional Status Description No Information Available Mental Status Description No Information Available Referrals Refer to Reason for Referral Status Appt Date [facility] CONSULT FOR URINARY FREQUENCY Created [id number] , [place] [address] [phone]
--- OUTSIDE RECORDS SUMMARY | 2020-12-29 17:24 | CCD | Continuity of Care Document ---
Author Author Jayden KAY PA Organization Unknown Address [address] [place] [address] [place] [address] Phone [phone] Care Team Providers Care Welder Apprentice Combination Name Role Phone Ck Howell MD AUTM [phone] Problems Description No Information Available Social History [...] Available Encounters Description No Information Available Assessments Date Code Description Provider 11/19/2020 Z20.828 Contact with and (carr spected) exposure to other viral communicable diseases BRITTANY Wilson Plan of Treatment No Information Available Functional Status Description No Information Available Mental Status Description No Information Available Referrals Description No Information Available
--- OUTSIDE RECORDS SUMMARY | 2020-12-29 17:24 | CCD | Continuity of Care Document ---
Author Author Lab Schedule, Jayden Blanco Organization Unknown Address [address] [address] Phone Unavailable Care Team Providers Care Respiratory Tech Name Role Phone Cherelle Cullen AUTM [phone] Problems Active Problems Provider Date Essential hypertension Cherelle CullenGEOVANNY Onset: 03/22/2020 Pure hypercholesterolemia Cherelle CullenGEOVANNY Onset: 021 Gastroesophageal reflux disease Cherelle SinghGEOVANNY castro Onset: 0 03/22/2020 Social History Type Date [...] qd po Unknown Omeprazole 40mg Capsules DR Smith qd prn Tyler Cooper MD Immunizations Description No Information [...] H/L Range Note Ua Dipstick Only 12/22/2020 [facility] Quiller Hand: Dr Alexi Mclaughlin [place], [place] [id number] [phone] Urine Color YELLOW Yellow Urine Appearance CLEAR Clear Urine PH 6.0 units 5.0 - 9.0 Urine Specific [place] 1.010 1.005 - 1.030 Urine Leukocytes NEGATIVE Negative Urine Blood LARGE Abnormal Negative Urine Protein NEGATIVE Negative -Trace Urine Glucose 1000 mg/dL mg/dL Abnormal Negative Urine Nitrite NEGATIVE Negative Urine Ketone NEGATIVE mg/dL Negative Urine Bilirubin NEGATIVE Negative Urine Urobilinogen 0.2 mg/dL 0.2 - 1.0 Laboratory test finding 12/22/2020 [facility] [address] [place] [address] [phone] Urine Culture FULL REPORT IN L <SEE NOTE> Normal 1 Basic Metabolic Panel 09/20/2020 [facility] Quiller Hand: Dr Alexi Mclaughlin [place], [place] [address] [phone] Glucose 153 mg/dL High 74 - 99 2 BUN 32 mg/dL High 7 - 18 Creatinine 1.6 mg/dL High 0.6 - 1.3 Sodium 142 mEq/L 136 - 145 Potassium 4.0 mEq/L 3.5 - 5.1 Chloride 105 mEq/L 98 - 107 Carbon Dioxide 28 mEq/L 21 - 32 Calcium 9.9 mg/dL 8.5 - 10.1 GFR 43 mL/min Low >60 GFR 52 mL/min Low >60 3 1 FULL REPORT IN LAB NOTES (eC W and Medent). NO GROWTH 2 100-125 mg/dL PRE-DIABET ES/FASTING >126 mg/dL DIABETES/FASTING 3 CHRONIC KIDNEY DISEASE STAGI NG PER NKF STAGE I & II GFR >= 60 NORMAL TO MILDLY DECREASED STAGE III GFR 30-59 MODERATELY DECREASED STAGE IV GFR 15-29 SEVERELY DECREASED STAGE V GFR <15 VERY LITTLE GFR LEFT ESRD GFR <15 ON MACHINE BOBBIN WINDER Procedures Date Code Description Status 09/20/2020 33960 Office/Outpatient Established Lo w MDM 20-29 Min Completed Medical Devices Description No Information Available Encounters Type Date Location Provider Dx Diagnosis Office Visit 09/20/2020 1:20p [facility] BRITTANY Rothman JR I10 Essential [...] SegalP 12/22/2020 R30.0 Dysuria Cherelle Cullen F END FINDER TWISTING DEPARTMENT 09/20/2020 I10 Essential (primary) hypertension BRITTANY King [...] 03/23/2021 1:20 pm - Nurse #2 at [facility] * 03/23/2021 1:40 pm - GEOVANNY Segal at [facility] 12/22/2020 - GEOVANNY Segal* R35.0 Frequency of micturition * R30.0 Dysuria * All * New Medication:* Tamsulosin HCL 0.4 mg - 1 daily 1 hour after same meal by mouth Functional Status Description No Information Available Mental Status Description No Information Available Referrals Description No Information Available
--- OUTSIDE RECORDS SUMMARY | 2020-12-29 17:24 | CCD | Continuity of Care Document ---
Author Author Jayden CULLEN Organization Unknown Address [address] [facility] [address] [place] [address] Phone [phone] Care Team Providers Care Customer Account Manager Name Role Phone Cherelle Cullen AUTM [phone] Problems Active Problems Provider Date Essential hypertension [...] Provide r Date Atorvastatin Calcium 20mg Tablets 1 by mouth [...] DR 1 qd prn Tyler Cooper MD Immunizations Description [...] Result H/L Range Note Basic Metabolic Panel 09/20/2020 [facility] Paver Operator: [place] [address] [phone] Glucose 153 mg/dL High 74 - 99 [...] LITTLE GFR LEFT ESRD GFR <15 ON DIE CAST ENGINEER Procedures Date Code Description Status 09/20/2020 38407 Office/Outpatient Established Lo w MDM 20-29 Min Completed Medical Devices Description No Information Available Encounters Type Date Location Provider Dx Diagnosis Office Visit 09/20/2020 1:20p [facility] I10 Essential (primary) hyperten [...] micturition GEOVANNY Segal 12/22/2020 R30.0 Dysuria Cherelle Cullen, F PROOFER 09/20/2020 I10 Essential (primary) hypertension BRITTANY King [...] 03/23/2021 1:20 pm - Nurse #2 at [facility] * 03/23/2021 1:40 pm - GEOVANNY Segal at [facility] 12/22/2020 - GEOVANNY Segal* R35.0 Frequency of micturition * R30.0 Dysuria Functional Status Description No Information Available Mental Status Description No Information Available Referrals Description No Information Available
--- OUTSIDE RECORDS SUMMARY | 2020-12-29 17:24 | CCD | Continuity of Care Document ---
Author Author Jayden CULLEN Organization Unknown Address [address] [facility] [address] [place] [address] Phone [phone] Care Team Providers Care Lye Boiler Name Role Phone Cherelle Cullen AUTM [phone] Problems Active Problems Provider Date Essential hypertension [...] H/L Range Note Ua Dipstick Only 12/22/2020 [facility] Meat Stocker: [place] [address] [phone] Urine Color YELLOW Yellow Urine Appearance CLEAR Clear Urine PH 6.0 units 5.0 - 9.0 Urine Specific [place] 1.010 1.005 - 1.030 Urine Leukocytes NEGATIVE Negative Urine Blood LARGE Abnormal Negative Urine Protein NEGATIVE Negative -Trace Urine Glucose 1000 mg/dL mg/dL Abnormal Negative Urine Nitrite NEGATIVE Negative Urine Ketone NEGATIVE mg/dL Negative Urine Bilirubin NEGATIVE Negative Urine Urobilinogen 0.2 mg/dL 0.2 - 1.0 Laboratory test finding 12/22/2020 [facility] [address] [place] [address] [phone] Urine Culture FULL REPORT IN L <SEE NOTE> Normal 1 Basic Metabolic Panel 09/20/2020 [facility] Meat Stocker: [place] [address] [phone] Glucose 153 mg/dL High 74 - 99 [...] LITTLE GFR LEFT ESRD GFR <15 ON BRAND ANALYST Procedures Date Code Description Status 09/20/2020 38523 Office/Outpatient Established Lo w MDM 20-29 Min Completed Medical Devices Description No Information Available Encounters Type Date Location Provider Dx Diagnosis Office Visit 09/20/2020 1:20p [facility] BRITTANY Rothman JR I10 Essential [...] Description Provider 12/22/2020 R35.0 Frequency of micturition Cherelle Cullen TRAFFIC TECHNICIAN 12/22/2020 R30.0 Dysuria Cherelle Cullen, F ROLLING MACHINE OPERATOR AUTOMATIC 09/20/2020 I10 Essential (primary) hypertension BRITTANY King [...] Z68.33 Body mass index [BMI] 33.0-33.9, adult Gilmar J Pickeral JR, PA Plan of Treatment Future Appointment(s):* 03/23/2021 1:20 pm - Nurse #2 at [facility] * 03/23/2021 1:40 pm - GEOVANNY Segal at [facility] 12/22/2020 - GEOVANNY Segal* R35.0 Frequency of micturition * R30.0 Dysuria * All * New Medication:* Tamsulosin HCL 0.4 mg - 1 daily 1 hour after same meal by mouth Functional Status Description No Information Available Mental Status Description No Information Available Referrals Description No Information Available
--- OUTSIDE RECORDS SUMMARY | 2020-12-29 17:24 | CCD | Continuity of Care Document ---
Author Author Lab Schedule, Jayden Blanco Organization Unknown Address [address] [place] [address] Phone Unavailable Care Team Providers Care Application Counselor Name Role Phone Cherelle Philip AUTM [phone] Problems Active Problems Provider Date Essential hypertension Cherelle Philip SECURITY INVESTIGATOR Onset: 03/22/2020 Pure hypercholesterolemia Cherelle PhilipGEOVANNY Onset: [...] H/L Range Note Basic Metabolic Panel 12/25/2020 [facility] Director Of Planning: [place] [address] [phone] Glucose 644 mg/dL Critical high 74 - [...] Low >60 3 Ua Dipstick Only 12/25/2020 [facility] , Director Of Planning: [place] [address] [phone] Urine Color YELLOW Yellow Urine Appearance CLEAR Clear Urine PH 5.0 units 5.0 - 9.0 Urine Specific [place] 1.015 1.005 - 1.030 Urine Leukocytes NEGATIVE Negative Urine Blood NEGATIVE Negative Urine Protein NEGATIVE Negative -Trace Urine Glucose >=2000 mg/dL mg/dL Abnormal Negative Urine Nitrite NEGATIVE Negative Urine Ketone 15 mg/dL mg/dL Abnormal Negative Urine Bilirubin NEGATIVE Negative Urine Urobilinogen 0.2 mg/dL 0.2 - 1.0 A1c 12/25/2020 [facility] Director Of Planning: Dr [place] [address] [phone] Hba1c 13.1 % High <5.7 4 Est Avg Glucose 329 mg/dL High 60 - 110 Ua Dipstick Only 12/22/2020 [facility] , Director Of Planning: [place] [address] [phone] Urine Color YELLOW Yellow Urine Appearance CLEAR Clear Urine PH 6.0 units 5.0 - 9.0 Urine Specific [place] 1.010 1.005 - 1.030 Urine Leukocytes NEGATIVE Negative Urine Blood LARGE Abnormal Negative Urine Protein NEGATIVE Negative -Trace Urine Glucose 1000 mg/dL mg/dL Abnormal Negative Urine Nitrite NEGATIVE Negative Urine Ketone NEGATIVE mg/dL Negative Urine Bilirubin NEGATIVE Negative Urine Urobilinogen 0.2 mg/dL 0.2 - 1.0 Laboratory test finding 12/22/2020 [facility] [address] [place] [address] [phone] Urine Culture FULL REPORT IN L <SEE NOTE> Normal 5 Basic Metabolic Panel 09/20/2020 [facility] Director Of Planning: [place] [address] [phone] Glucose 153 mg/dL High 74 - 99 [...] LITTLE GFR LEFT ESRD GFR <15 ON OVERHEAD DOOR TECHNICIAN 4 Lab Result Notes: Pre-Diabetes 5.7 - [...] LITTLE GFR LEFT ESRD GFR <15 ON OVERHEAD DOOR TECHNICIAN Procedures Date Code Description Status 09/20/2020 39363 Office/Outpatient Established Lo w MDM 20-29 Min Completed Medical Devices Description No Information Available Encounters Type Date Location Provider Dx Diagnosis Office Visit 09/20/2020 1:20p [facility] Darrell Gordon JR PA I10 [...] GEOVANNY Segal 12/22/2020 R30.0 Dysuria Alma Segal PATIENT CARE MANAGER 09/20/2020 I10 Essential (primary) hypertension BRITTANY King [...] 12/27/2020 9:00 am - GEOVANNY Segal at [facility] * 03/23/2021 1:20 pm - Nurse #2 at [facility] * 03/23/2021 1:40 pm - GEOVANNY Segal at [facility] Functional Status Description No Information Available Mental Status Description No Information Available Referrals Refer to Reason for Referral Status Appt Date [facility] CONSULT FOR URINARY FREQUENCY Created [id number] [place] [address] [phone]
--- OUTSIDE RECORDS SUMMARY | 2020-12-29 17:24 | CCD | Continuity of Care Document ---
Author Author Lab Schedule, Jayden Blanco Organization Unknown Address [address] [address] Phone Unavailable Care Team Providers Care Family Protection Specialist Name Role Phone Cherelle Cullen AUTM [phone] Problems Active Problems Provider Date Essential hypertension [...] H/L Range Note Ua Dipstick Only 12/22/2020 [facility] Enterprise Services Manager: Dr Alexi Mclaughlin [place], [place] [id number] [phone] Urine Color YELLOW Yellow Urine Appearance CLEAR Clear Urine PH 6.0 units 5.0 - 9.0 Urine Specific [place] 1.010 1.005 - 1.030 Urine Leukocytes NEGATIVE Negative Urine Blood LARGE Abnormal Negative Urine Protein NEGATIVE Negative -Trace Urine Glucose 1000 mg/dL mg/dL Abnormal Negative Urine Nitrite NEGATIVE Negative Urine Ketone NEGATIVE mg/dL Negative Urine Bilirubin NEGATIVE Negative Urine Urobilinogen 0.2 mg/dL 0.2 - 1.0 Laboratory test finding 12/22/2020 [facility] [address] [place] [address] [phone] Urine Culture FULL REPORT IN L <SEE NOTE> Normal 1 Basic Metabolic Panel 09/20/2020 [facility] Enterprise Services Manager: Dr Alexi Mclaughlin [place], [place] [id number] [phone] Glucose 153 mg/dL High 74 - 99 [...] LITTLE GFR LEFT ESRD GFR <15 ON STEM SIZER Procedures Date Code Description Status 09/20/2020 21482 Office/Outpatient Established Lo w MDM 20-29 Min Completed Medical Devices Description No Information Available Encounters Type Date Location Provider Dx Diagnosis Office Visit 09/20/2020 1:20p [facility] BRITTANY Rothman JR I10 Essential [...] SegalP 12/22/2020 R30.0 Dysuria Cherelle Cullen F POLYSOMNOGRAPHIC TECH 09/20/2020 I10 Essential (primary) hypertension BRITTANY King [...] 03/23/2021 1:20 pm - Nurse #2 at [facility] * 03/23/2021 1:40 pm - GEOVANNY Segal at [facility] 12/22/2020 - GEOVANNY Segal* R35.0 Frequency of micturition * R30.0 Dysuria * All * New Medication:* Tamsulosin HCL 0.4 mg - 1 daily 1 hour after same meal by mouth Functional Status Description No Information Available Mental Status Description No Information Available Referrals Description No Information Available
--- OUTSIDE RECORDS SUMMARY | 2020-12-29 17:25 | CCD ---
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 Name Role Phone NO, PCP Unavailable Unavailable Subhash, Faizan SPRAYER AUTOMATIC SPRAY MACHINE Unavailable Unavailable Subhash, Faizan SPRAYER AUTOMATIC SPRAY MACHINE Unavailable Unavailable Subhash, Faizan SPRAYER AUTOMATIC SPRAY MACHINE Unavailable Unavailable Subhash, Faizan SPRAYER AUTOMATIC SPRAY MACHINE Unavailable Unavailable Subhash, Faizan SPRAYER AUTOMATIC SPRAY MACHINE Unavailable Unavailable Subhash, Faizan SPRAYER AUTOMATIC SPRAY MACHINE Unavailable Unavailable Subhash, Faizan SPRAYER AUTOMATIC SPRAY MACHINE Unavailable Unavailable Subhash, Faizan SPRAYER AUTOMATIC SPRAY MACHINE Unavailable Unavailable Subhash, Faizan SPRAYER AUTOMATIC SPRAY MACHINE Unavailable Unavailable Subhash, Faizan SPRAYER AUTOMATIC SPRAY MACHINE Unavailable Unavailable Subhash, Faizan SPRAYER AUTOMATIC SPRAY MACHINE Unavailable Unavailable Subhash, Faizan SPRAYER AUTOMATIC SPRAY MACHINE Unavailable Unavailable Subhash, Faizan SPRAYER AUTOMATIC SPRAY MACHINE Unavailable Unavailable Subhash, Faizan SPRAYER AUTOMATIC SPRAY MACHINE Unavailable Unavailable Subhash, Faizan SPRAYER AUTOMATIC SPRAY MACHINE Unavailable Unavailable Subhash, Faizan SPRAYER AUTOMATIC SPRAY MACHINE Unavailable Unavailable Subhash, Faizan SPRAYER AUTOMATIC SPRAY MACHINE Unavailable Unavailable Subhash, Faizan SPRAYER AUTOMATIC SPRAY MACHINE Unavailable Unavailable Subhash, Faizan SPRAYER AUTOMATIC SPRAY MACHINE Unavailable Unavailable Subhash, Faizan SPRAYER AUTOMATIC SPRAY MACHINE Unavailable Unavailable Subhash, Faizan SPRAYER AUTOMATIC SPRAY MACHINE Unavailable Unavailable Subhash, Faizan SPRAYER AUTOMATIC SPRAY MACHINE Unavailable Unavailable Subhash, Faizan SPRAYER AUTOMATIC SPRAY MACHINE Unavailable Unavailable Subhash, Faizan SPRAYER AUTOMATIC SPRAY MACHINE Unavailable Unavailable Subhash, Faizan SPRAYER AUTOMATIC SPRAY MACHINE Unavailable Unavailable Subhash, Faizan SPRAYER AUTOMATIC SPRAY MACHINE Unavailable Unavailable Subhash, Faizan SPRAYER AUTOMATIC SPRAY MACHINE Unavailable Unavailable Subhash, Faizan SPRAYER AUTOMATIC SPRAY MACHINE Unavailable Unavailable Subhash, Faizan SPRAYER AUTOMATIC SPRAY MACHINE Unavailable Unavailable Subhash, Faizan SPRAYER AUTOMATIC SPRAY MACHINE Unavailable Unavailable Subhash, Faizan SPRAYER AUTOMATIC SPRAY MACHINE Unavailable Unavailable Subhash, Faizan SPRAYER AUTOMATIC SPRAY MACHINE Unavailable Unavailable Subhash, Faizan SPRAYER AUTOMATIC SPRAY MACHINE Unavailable Unavailable Subhash, Faizan SPRAYER AUTOMATIC SPRAY MACHINE Unavailable Unavailable Subhash, Faizan SPRAYER AUTOMATIC SPRAY MACHINE Unavailable Unavailable Charlebois, A Jacy RPA C Unavailable Unavailable Charlebois, A Jacy RPA C Unavailable Unavailable Charlebois, A Jacy RPA C Unavailable Unavailable Charlebois, A Jacy RPA C Unavailable Unavailable Charlebois, A Jacy RPA C Unavailable Unavailable Charlebois, A Jacy RPA C Unavailable Unavailable Charlebois, A Jacy RPA C Unavailable Unavailable Charlebois, A Jacy RPA C Unavailable Unavailable Charlebois, A Jacy RPA C Unavailable Unavailable Charlebois, A Jacy RPA C Unavailable Unavailable Charlebois, A Jacy RPA C Unavailable Unavailable Charlebois, A Jacy RPA C Unavailable Unavailable Charlebois, A Jacy RPA C Unavailable Unavailable Charlebois, A Jacy RPA C Unavailable Unavailable Charlebois, A Jacy RPA C Unavailable Unavailable Charlebois, A Jacy RPA C Unavailable Unavailable Charlebois, A Jacy RPA C Unavailable Unavailable Charlebois, A Jacy RPA C Unavailable Unavailable Charlebois, A Jacy RPA C Unavailable Unavailable Charlebois, A Jacy RPA C Unavailable Unavailable Charlebois, A Jacy RPA C Unavailable Unavailable Charlebois, A Jacy RPA C Unavailable Unavailable Charlebois, A Jacy RPA C Unavailable Unavailable Charlebois, A Jacy RPA C Unavailable Unavailable Charlebois, A Jacy RPA C Unavailable Unavailable Charlebois, A Jacy RPA C Unavailable Unavailable Charlebois, A Jacy RPA C Unavailable Unavailable Charlebois, A Jacy RPA C Unavailable Unavailable Charlebois, A Jacy RPA C Unavailable Unavailable Charlebois, A Ajcy RPA C Unavailable Unavailable Charlebois, A Jacy RPA C Unavailable Unavailable Charlebois, A Jacy RPA C Unavailable Unavailable Charlebois, A Jacy RPA C Unavailable Unavailable PICKERAL JR, J PHOEBE PA-C Unavailable Unavailable PICKERAL JR, J PHOEBE PA-C Unavailable Unavailable PICKERAL JR, J PHOEBE PA-C Unavailable Unavailable PICKERAL JR, J PHOEEB PA-C Unavailable Unavailable PICKERAL JR, J PHOEBE PA-C Unavailable Unavailable PICKERAL JR, J PHOEBE PA-C Unavailable Unavailable PICKERAL JR, J PHOEBE PA-C Unavailable Unavailable PICKERAL JR, J PHOEBE PA-C Unavailable Unavailable PICKERAL JR, J PHOEBE PA-C Unavailable Unavailable PICKERAL JR, J PHOEBE PA-C Unavailable Unavailable PICKERAL JR, J PHOEBE PA-C Unavailable Unavailable PICKERAL JR, J PHOEBE PA-C Unavailable Unavailable PICKERAL JR, J PHOEBE PA-C Unavailable Unavailable PICKERAL JR, J PHOEBE PA-C Unavailable Unavailable PICKERAL JR, J PHOEBE PA-C Unavailable Unavailable PICKERAL JR, J PHOEBE PA-C Unavailable Unavailable PICKERAL JR, J PHOEBE PA-C Unavailable Unavailable PICKERAL JR, J PHOEBE PA-C Unavailable Unavailable PICKERAL JR, J PHOEBE PA-C Unavailable Unavailable PICKERAL JR, J PHOEBE PA-C Unavailable Unavailable PICKERAL JR, J PHOEBE PA-C Unavailable Unavailable PICKERAL JR, J PHOEBE PA-C Unavailable Unavailable PICKERAL JR, J PHOEBE PA-C Unavailable Unavailable PICKERAL JR, J PHOEBE PA-C Unavailable Unavailable PICKERAL JR, J PHOEBE PA-C Unavailable Unavailable PICKERAL JR, J PHOEBE PA-C Unavailable Unavailable PICKERAL JR, J PHOEBE PA-C Unavailable Unavailable Bartoszewski, Johana Turpin MS, RPA-C Unavailable Unav ailable Bartoszewski, Johana Dyana MS, RPA-C Unavailable Unav ailable Bartoszewski, Johana Dyana MS, RPA-C Unavailable Unav ailable Bartoszewski, Johana Dyana MS, RPA-C Unavailable Unav ailable Bartoszewski, Johana Dyana MS, RPA-C Unavailable Unav ailable Bartoszewski, Johana Dyana MS, RPA-C Unavailable Unav ailable Bartoszewski, Johana Dyana MS, RPA-C Unavailable Unav ailable Bartoszewski, Johana Dyana MS, RPA-C Unavailable Unav ailable Bartoszewski, Johana Dyana MS, RPA-C Unavailable Unav ailable Bartoszewski, Johana Dyana MS, RPA-C Unavailable Unav ailable Bartoszewski, Johana Dyana MS, RPA-C Unavailable Unav ailable Bartoszewski, Johana Dyana MS, RPA-C Unavailable Unav ailable Bartoszewski, Johana Dyana MS, RPA-C Unavailable Unav ailable Bartoszewski, Johana Dyana MS, RPA-C Unavailable Unav ailable Bartoszewski, Johana Dyana MS, RPA-C Unavailable Unav ailable Bartoszewski, Johana Dyana MS, RPA-C Unavailable Unav ailable Bartoszewski, Johana Dyana MS, RPA-C Unavailable Unav ailable Bartoszewski, Johana Dyana MS, RPA-C Unavailable Unav ailable Bartoszewski, Johana Dyana MS, RPA-C Unavailable Unav ailable Bartoszewski, Johana Dyana MS, RPA-C Unavailable Unav ailable Bartoszewski, Johana Dyana MS, RPA-C Unavailable Unav ailable Bartoszewski, Johana Dyana MS, RPA-C Unavailable Unav ailable Bartoszewski, Johana Dyana MS, RPA-C Unavailable Unav ailable Bartoszewski, Johana Dyana MS, RPA-C Unavailable Unav ailable Bartoszewski, Johana Dyana MS, RPA-C Unavailable Unav ailable Bartoszewski, Johana Dyana MS, RPA-C Unavailable Unav ailable Bartoszewski, Johana Dyana MS, RPA-C Unavailable Unav ailable Bartoszewski, Johana Dyana MS, RPA-C Unavailable Unav ailable Bartoszewski, Johana Dyana MS, RPA-C Unavailable Unav ailable Bartoszewski, Johana Dyana MS, RPA-C Unavailable Unav ailable OBNOAH T TOY CARL Unavailable Unavailable OBEN T TOY CARL Unavailable Unavailable OBEN T TOY CARL Unavailable Unavailable OBEN T TOY CARL Unavailable Unavailable OBEN T TOY MD Unavailable Unavailable OBEN T TOY MD Unavailable Unavailable OBEN, T TOY Unavailable Unavailable OBEN, T TOY Unavailable Unavailable OBEN, T TOY MD Unavailable Unavailable OBEN, T TOY Unavailable Unavailable OBEN, T TOY MD Unavailable Unavailable OBEN, T TOY MD Unavailable Unavailable OBEN, T TOY MD Unavailable Unavailable OBEN, T TOY MD Unavailable Unavailable OBEN, T TOY MD Unavailable Unavailable OBEN, T TOY MD Unavailable Unavailable OBEN, T TOY MD Unavailable Unavailable OBEN, T TOY MD Unavailable Unavailable OBEN, T TOY MD Unavailable Unavailable OBEN, T TOY MD Unavailable Unavailable OBEN, T TOY MD Unavailable Unavailable OBEN, T TOY MD Unavailable Unavailable OBEN, T TOY MD Unavailable Unavailable OBEN, T TOY MD Unavailable Unavailable OBEN, T TOY MD Unavailable Unavailable OBEN, T TOY MD Unavailable Unavailable OBEN, T TOY MD Unavailable Unavailable OBEN, T TOY MD Unavailable Unavailable OBEN, T TOY MD Unavailable Unavailable OBEN, T TOY MD Unavailable Unavailable OBEN, T TOY MD Unavailable Unavailable OBEN, T TOY MD Unavailable Unavailable OBEN, T TOY MD Unavailable Unavailable OBEN, T TOY MD Unavailable Unavailable OBEN, T TOY MD Unavailable Unavailable OBEN, T TOY MD Unavailable Unavailable OBEN, T TOY MD Unavailable Unavailable OBEN, T TOY MD Unavailable Unavailable OBEN, T TOY MD Unavailable Unavailable OBEN, T TOY MD Unavailable Unavailable OBEN, T TOY MD Unavailable Unavailable OBEN, T TOY MD Unavailable Unavailable OBEN, T TOY MD Unavailable Unavailable OBEN, T TOY MD Unavailable Unavailable OBEN, T TOY MD Unavailable Unavailable OBEN, T TOY MD Unavailable Unavailable OBEN, T TOY MD Unavailable Unavailable OBEN, T TOY MD Unavailable Unavailable OBEN, T TOY MD Unavailable Unavailable OBEN, T TOY MD Unavailable Unavailable OBEN, T TOY MD Unavailable Unavailable OBEN, T TOY MD Unavailable Unavailable OBEN, T TOY MD Unavailable Unavailable OBEN, T TOY MD Unavailable Unavailable OBEN, T TOY MD Unavailable Unavailable OBEN, T TOY MD Unavailable Unavailable OBEN, T TOY MD Unavailable Unavailable OBEN, T TOY MD Unavailable Unavailable Dequan Oneal MD Unavailable Unavailable Dequan Oneal MD Unavailable Unavailable Dequan Oneal MD Unavailable Unavailable Dequan Oneal MD Unavailable Unavailable Dequan Oneal MD Unavailable Unavailable Dequan Oneal MD Unavailable Unavailable Dequan Oneal MD Unavailable Unavailable Dequan Oneal MD Unavailable Unavailable Dequan Oneal MD Unavailable Unavailable Dequan Oneal MD Unavailable Unavailable Dequan Oneal MD Unavailable Unavailable Dequan Oneal MD Unavailable Unavailable Dequan Oneal MD Unavailable Unavailable Dequan Oneal MD Unavailable Unavailable Dequan Oneal MD Unavailable Unavailable Dequan Oneal MD Unavailable Unavailable Dequan Oneal MD Unavailable Unavailable Dequan Oneal MD Unavailable Unavailable Dequan Oneal MD Unavailable Unavailable Dequan Oneal MD Unavailable Unavailable Dequan Oneal MD Unavailable Unavailable Dequan Oneal MD Unavailable Unavailable Dequan Oneal MD Unavailable Unavailable Dequan Oneal MD Unavailable Unavailable Dequan Oneal MD Unavailable Unavailable Dhruv HENDERSON MD Unavailable Unavailable Dhruv HENDERSON MD Unavailable Unavailable Dhruv HENDERSON MD Unavailable Unavailable Dhruv HENDERSON MD Unavailable Unavailable Dhruv HENDERSON MD Unavailable Unavailable Dhruv HENDERSON MD Unavailable Unavailable Dhruv HENDERSON MD Unavailable Unavailable Dhruv HENDERSON MD Unavailable Unavailable Dhruv HENDERSON MD Unavailable Unavailable Dhruv HENDERSON MD Unavailable Unavailable Dhruv HENDERSON MD Unavailable Unavailable Dhruv HENDERSON MD Unavailable Unavailable Dhruv HENDERSON MD Unavailable Unavailable Dhruv HENDERSON MD Unavailable Unavailable Dhruv HENDERSON MD Unavailable Unavailable Dhruv HENDERSON MD Unavailable Unavailable Dhruv HENDERSON MD Unavailable Unavailable Dhruv HENDERSON MD Unavailable Unavailable Dhruv HENDERSON MD Unavailable Unavailable Dhruv HENDERSON MD Unavailable Unavailable Dhruv HENDERSON MD Unavailable Unavailable Dhruv HENDERSON MD Unavailable Unavailable Dhruv HENDERSON MD Unavailable Unavailable Dhruv HENDERSON MD Unavailable Unavailable Dhruv HENDERSON MD Unavailable Unavailable hDruv HENDERSON MD Unavailable Unavailable Dhruv HENDERSON MD Unavailable Unavailable Dhruv HENDERSON MD Unavailable Unavailable Dhruv HENDERSON MD Unavailable Unavailable Dhruv HENDERSON MD Unavailable Unavailable Dhruv HENDERSON MD Unavailable Unavailable Dhruv HENDERSON MD Unavailable Unavailable Dhruv HENDERSON MD Unavailable Unavailable Dhruv HENDERSON MD Unavailable Unavailable Dhruv HENDERSON MD Unavailable Unavailable Dhruv HENDERSON MD Unavailable Unavailable Dhruv EHNDERSON MD Unavailable Unavailable Dhruv HENDERSON MD Unavailable Unavailable Dhruv HENDERSON MD Unavailable Unavailable Dhruv HENDERSON MD Unavailable Unavailable Dhruv HENDERSON MD Unavailable Unavailable Dhruv HENDERSON MD Unavailable Unavailable Dhruv HENDERSON MD Unavailable Unavailable Dhruv HENDERSON MD Unavailable Unavailable Dhruv HENDERSON MD Unavailable Unavailable Dhruv HENDERSON MD Unavailable Unavailable Dhruv HENDERSON MD Unavailable Unavailable Dhruv HENDERSON MD Unavailable Unavailable Dhruv HENDERSON MD Unavailable Unavailable Dhruv HENDERSON MD Unavailable Unavailable Dhruv HENDERSON MD Unavailable Unavailable Dhruv HENDERSON MD Unavailable Unavailable Dhruv HENDERSON MD Unavailable Unavailable Dhruv HENDERSON MD Unavailable Unavailable Dhruv HENDERSON MD Unavailable Unavailable Dhruv HENDERSON MD Unavailable Unavailable Dhruv HENDERSON MD Unavailable Unavailable Dhruv HENDERSON MD Unavailable Unavailable Dhruv HENDERSON MD Unavailable Unavailable BEATRIZ H MARY CARL Unavailable Unavailable BEATRIZ H MARY CARL Unavailable Unavailable BEATRIZ H MARY CARL Unavailable Unavailable BEATRIZ H MARY CARL Unavailable Unavailable BEATRIZ H MARY CARL Unavailable Unavailable BEATRIZ H MARY CARL Unavailable Unavailable BEATRIZ H MARY CARL Unavailable Unavailable Dhruv HENDERSON MD Unavailable Unavailable BEATRIZ H MARY CARL Unavailable Unavailable BEATRIZ H MARY CARL Unavailable Unavailable Dhruv HENDERSON MD Unavailable Unavailable Dhruv HENDERSON MD Unavailable Unavailable Dhruv HENDERSON MD Unavailable Unavailable Dhruv HENDERSON MD Unavailable Unavailable Dhruv HENDERSON MD Unavailable Unavailable Dhruv HENDERSON MD Unavailable Unavailable Dhruv HENDERSON MD Unavailable Unavailable Dhruv HENDERSON MD Unavailable Unavailable Dhruv HENDERSON MD Unavailable Unavailable Lisa TRAN MD Unavailable Unavailable OBLisa ZAMORA MD Unavailable Unavailable Lisa TRAN MD Unavailable Unavailable Lisa TRAN MD Unavailable Unavailable OBLisa ZAMORA MD Unavailable Unavailable OBLisa ZAMORA MD Unavailable Unavailable OBLisa ZAMORA MD Unavailable Unavailable OBLisa ZAMORA MD Unavailable Unavailable OBLisa ZAMORA MD Unavailable Unavailable Lisa TRAN MD Unavailable Unavailable OBLisa ZAMORA MD Unavailable Unavailable OBLisa ZAMORA MD Unavailable Unavailable OBLisa ZAMORA MD Unavailable Unavailable OBLisa ZAMORA MD Unavailable Unavailable OBLisa ZAMORA MD Unavailable Unavailable OBLisa ZAMORA MD Unavailable Unavailable OBLisa ZAMORA MD Unavailable Unavailable OBLisa ZAMORA MD Unavailable Unavailable OBLisa ZAMORA MD Unavailable Unavailable OBLisa ZAMORA MD Unavailable Unavailable OBLisa ZAMORA MD Unavailable Unavailable OBLisa ZAMORA MD Unavailable Unavailable OBLisa ZAMORA MD Unavailable Unavailable OBLisa ZAMORA MD Unavailable Unavailable OBLisa ZAMORA MD Unavailable Unavailable OBLisa ZAMORA MD Unavailable Unavailable OBLisa ZAMORA MD Unavailable Unavailable OBLisa ZAMORA MD Unavailable Unavailable OBLisa ZAMORA TOY MD Unavailable Unavailable OBLisa ZAMORA TOY MD Unavailable Unavailable OBLisa ZAMORA TOY MD Unavailable Unavailable OBLisa ZAMORA MD Unavailable Unavailable OBLisa ZAMORA TOY MD Unavailable Unavailable OBLisa ZAMORA TOY MD Unavailable Unavailable OBEN, T TOY MD Unavailable Unavailable OBEN, T TOY MD Unavailable Unavailable OBEN, T TOY MD Unavailable Unavailable OBEN, T TOY MD Unavailable Unavailable OBEN, T TOY MD Unavailable Unavailable OBEN, T TOY MD Unavailable Unavailable OBEN, T TOY MD Unavailable Unavailable OBEN, T TOY MD Unavailable Unavailable OBEN, T TOY MD Unavailable Unavailable OBEN, T TOY MD Unavailable Unavailable OBEN, T TOY MD Unavailable Unavailable OBEN, T TOY MD Unavailable Unavailable OBEN, T TOY MD Unavailable Unavailable OBEN, T TOY MD Unavailable Unavailable OBEN, T TOY MD Unavailable Unavailable OBEN, T TOY MD Unavailable Unavailable OBEN, T TOY MD Unavailable Unavailable OBEN, T TOY MD Unavailable Unavailable OBEN, T TOY MD Unavailable Unavailable OBEN, T TOY MD Unavailable Unavailable OBEN, T TOY MD Unavailable Unavailable OBEN, T TOY MD Unavailable Unavailable OBEN, T TOY MD Unavailable Unavailable OBEN, T TOY MD Unavailable Unavailable Re-disclosure Warning The records that you are about to access may contain information from federally-assisted alcohol or drug abuse programs. If such information is present, then the following federally mandated warning applies: This information has been disclosed to you from records protected by federal confidentiality rules (42 CFR part 2). The federal rules prohibit you from making any further disclosure of this information unless further disclosure is expressly permitted by the written consent of the person to whom it pertains or as otherwise permitted by 42 CFR part 2. A general authorization for the release of medical or other information is NOT sufficient for this purpose. The Federal rules restrict any use of the information to criminally investigate or prosecute any alcohol or drug abuse patient.The records that you are about to access may contain highly sensitive health information, the redisclosure of which is protected by Article 27-F of the [facility] Public Health law. If you continue you may have access to information: Regarding HIV / AIDS; Provided by facilities licensed or operated by the [facility] Office of Mental Health; or Provided by the [facility] Office for People With Developmental Disabilities. If such information is present, then the following [facility] mandated warning applies: This information has been disclosed to you from confidential records which are protected by state law. State law prohibits you from making any further disclosure of this information without the specific written consent of the person to whom it pertains, or as otherwise permitted by law. Any unauthorized further disclosure in violation of state law may result in a fine or long term sentence or both. A general authorization for the release of medical or other information is NOT sufficient authorization for further disc losure. Allergies and Adverse Reactions Type Description Substance Reaction Status Data Source(s ) No Known Drug Allergies No Known Drug Allergies [facility] No Known Food Allergies No Known Food Allergies [facility] Propensity to adverse reactions seasonal seasonal [facility] No Known Environmental Allergies No Known Environmental [facility] Family History Family Member Name Family Member Gender Family Member Status Date o f Status Description Data Source(s) Unknown Unknown Problem [facility] ([facility]) Unknown Female Problem [facility] Encounters Encounter Providers Location Date Indications Data Source(s ) Outpatient Attender: Yumiko Oneal MD 1 07:35:13 PM EDT - 11/20/2020 09:48:00 PM EDT [facility] ([facility]) Outpatient Attender: PHOEBE Ricardo 0 09/20/2020 01:20:00 PM EDT [facility] ([facility] ) Outpatient Attender: Dyana Joseph i MS, RPA-CAttender: TOY TRAN MDConsultant: PCP NO 04/12/2020 12:55:00 PM EST - 04/12/2020 12:55:00 PM [facility] Outpatient Attender: Jacy Moore/Yung/Bella mary/Allison 04/10/2020 10:15:00 AM EST [facility] ([facility] Outpatient Attender: Faizan Ricardo 08:00:00 AM EST [facility] ([facility] ) Outpatient Attender: MARY HENDERSON MD [facility] 09/2020 09:00:00 AM EST [facility] Outpatient Attender: TOY TRAN MDConsultant: PCP NO 03/01/2020 08:34:00 AM EST - 03/01/2020 08:34:00 AM EST [facility] Out[facility] Attender: TOY TRAN MDConsultant: PCP NO 02/18/2020 08:15:00 AM EST - 02/18/2020 11:50:00 AM EST [facility] Patient discharged. Outpatient Attender: MARY HENDERSON MD [facility] 05/2020 12:15:00 PM EST [facility] ([facility] Outpatient Attender: Dyana Up MS, RPA-CConsultan t: PCP NO 02/14/2020 09:39:00 AM EST - 02/14/2020 10:39:00 AM EST [facility] Patient discharged. Outpatient Attender: TOY TRAN MDConsultant: PCP NO 01/20/2020 07:39:53 AM EST - 01/21/2020 04:14:00 PM EST [facility] Patient discharged. Outpatient Attender: TOY TRAN MD 01/04/20 20 10:50:00 AM EST - 01/04/2020 10:50:00 AM EST [facility] Outpatient Attender: TOY TRAN MD [facility] 01/04/2020 09:30:0 0 AM EST [facility] ([facility]) Outpatient Attender: MARY HENDERSON MD [facility] 02:45:00 PM EDT [facility] ([facility] Immunizations Vaccine Date Status Description Data Source(s) New in 2012. IIV4 12/27/2020 08:17:00 AM EST completed [facility] ([facility]) COVID-19 VACCINE Pfizer 04/02/2020 12:00:00 AM EST completed [facility] Vaccine Series Complete: YESThis Data wa s Submitted to [facility]. COVID-19 VACCINE Pfizer 03/12/2020 12:00:00 AM EST completed [facility] Vaccine Series Complete: NOThis Data was Submitted to [facility]. Medications Medication Brand Name Start Date Product Form Dose Route Admi nistrative Instructions Pharmacy Instructions Status Indications Reaction Description Data Source(s) Eduardo Meier 12/27/2020 12:00:00 AM EST active [facility] ([facility] ) Lancets Thin 12/25/2020 12:00:00 AM EST activ e [facility] ([facility]) Lancet Device 12/25/2020 12:00:00 AM EST acti ve [facility] ([facility]) Freestyle Lite Test 12/25/2020 12:00:00 AM EST active [facility] ([facility]) Freestyle Lite Blood Glucose Monitoring System 12/25/2020 12:00:00 AM EST active [facility] ([facility]) 3 ML Insulin Glargine 100 UNT/ML Pen Injector [Lantus] Lantu s Solostar 12/25/2020 12:00:00 AM EST SUBCUTANEOUS completed [facility] ([facility]) Tamsulosin hydrochloride 0.4 MG Oral Capsule Tamsulosin HCL 12/22/2020 12:00:00 AM EST ORAL completed [facility] ([facility]) Ascorbic Acid 500 MG Oral Tablet Vitamin C 03/22/2020 12:00:00 AM EST ORAL active [facility] ([facility]) Cholecalciferol 2000 UNT Oral Tablet Vitamin D3 Super Streng th 03/22/2020 12:00:00 AM EST ORAL active M EDENT ([facility]) Naproxen 500 MG Oral Tablet Naproxen 03/22/2020 12:00:00 AM EST active [facility] ([facility]) atorvastatin 20 MG Oral Tablet Atorvastatin Calcium 03/22/2020 1 2:00:00 AM EST ORAL active [facility] ( [facility]) atorvastatin 20 MG Oral Tablet Atorvastatin Calcium 01/03/2020 1 2:00:00 AM EST active [facility] ( [facility] Omeprazole 20 MG Delayed Release Oral Capsule Omeprazole 12/28/2019 12:00:00 AM EST ORAL active [facility] ([facility] Naproxen 500 MG Oral Tablet Naproxen 12/28/2019 12:00:00 AM EST active [facility] ([facility] Levofloxacin 500 MG Oral Tablet Levofloxacin 12/03/2019 12:00:00 AM E DT ORAL completed [facility] ([facility] Omeprazole 40 MG Delayed Release Oral Capsule Omeprazole 11/11/2019 12:00:00 AM EDT ORAL active [facility] ([facility] ) Insurance Providers Payer name Policy type / Coverage type Policy ID Covered alliance party ID Covered alliance party's relationship to rowan Policy Rowan Plan Information BC/BS Of [facility] Commercial [id number] Self [facility] [facility] Part B [id number] Self [id number] MEDICARE COMPLETE [id number] SP [id number] [employer] [id number] Self [id number] AETNA MEDICARE -O/P CO [id number] AETNA MEDICARE CO [id number] 18 MEBQY ZWY AETNA MCR - PHYSICIAN CO MEBQYZWY 18 MEBQYZWY AETNA MEDICARE MEBQYZWY SP MEBQY ZWY AETNA MEDICARE O [id number] [id number] S MEBQY ZWY AETNA MEDICARE [id number] SP MEMQY ZWY AETNA MEDICARE [id number] SP [id number] [employer] [id number] AETNA MEDICARE [id number] SP MEBQY ZWY AETNA MEDICARE O [id number] S [id number] [facility] Aetna Ppo/Pos/Nap/[employer] Commercial MEBQYZWY [id number] Self MEBQYZWY [facility] [id number] S [id number] [facility] B [id number] S [id number] [employer] Medicare Commercial [id number] Self [id number] BC/BS Of [facility] Part B [id number] Self BCBS [place] PPO 302/307 [id number] SP [id number] AETNA MEDICARE [id number] SP [id number] BCBS OF [place] 121/621 [id number] SP [id number] AETNA MEDICARE [id number] SP [id number] AETNA MEDICARE [place] [id number] 18 [id number] AETNA -CLINIC [id number] Problems, Conditions, and Diagnoses Code Display Name Description Problem Type Effective Dates Data Source(s) Z125 Encounter for screening for malignant ne oplasm of prostate Encounter for screening for malignant neoplasm of prostate Diagnosis 12:55:00 PM [facility] X94120 Left testicular pain Left testicular pain Diagnosis 04/12/2020 12:55:00 PM [facility] R3121 Asymptomatic microscopic hematuria Asymptomatic microscopic hematuria Diagnosis 03/01/2020 08:34:00 AM [facility] Z4889 Encounter for other specified surgical a ftercare Encounter for other specified surgical aftercare Diagnosis 03/01/2020 08:34:00 AM [facility] N503 Cyst of epididymis Cyst of epididymis Diagnosis 08:15:00 AM 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 Z1159 Encounter for screening for other viral diseases Encounter for screening for other viral diseases Diagnosis 02/14/2020 09:39:00 AM [facility] [id number] Encounter for other preprocedural examin ation Encounter for other preprocedural examination Diagnosis 01/21/2020 10:48:00 AM [facility] Z12.5 Screening for malignant neoplasm of pros leyva Screening for malignant neoplasm of prostate Problem 04/12/2020 12:00:00 AM EST [facility] ([facility]) [id number] Gastroesophageal reflux disease Gastroesophageal reflux disease Problem 03/22/2020 12:00:00 AM EST [facility] ([facility]) [id number] Pure hypercholesterolemia Pure hypercholesterolemia Pr oblem 03/22/2020 12:00:00 AM EST [facility] ([facility]) [id number] Essential hypertension Essential hypertension Problem 03/22/2020 12:00:00 AM EST [facility] ([facility]) N50.812 Pain in testicle Pain in testicle Problem 03/01/2020 12 :00:00 AM EST [facility] ([facility]) R31.21 Microscopic hematuria Microscopic hematuria Problem 03/01/2020 12:00:00 AM EST [facility] ([facility]) Surgeries/Procedures Procedure Description Date Indications Data Source(s) OFFICE OUTPATIENT VISIT 15 MINUTES 09/20/2020 12:00:00 AM EDT [facility] ([facility]) Endoscopy Upper GI Biopsy 06/02/2020 12:00:00 AM EDT [facility] ([facility], ) ECG ROUTINE ECG W/LEAST 12 LDS W/I&R 03/22/2020 12:00: 00 AM EST [facility] ([facility]) Endoscopy Upper GI Biopsy 11/11/2019 12:00:00 AM EDT [facility] ([facility], ) Colonoscopy Flexible Proximal To Splenic Flexure Diagnostic W/Or 11/11/2019 12:00:00 AM EDT [facility] ([facility], ) Results ID Date Data Source [id number] 12/29/2020 11:58:00 AM EST [facility] Name Value Range Interpretation Code Description Data Aidee rce(s) Supporting Document(s) Appearance, Urine RFX Laboratory test result [facility] ([facility]) PH,Urine RFX 5.0 units 5.0-9.0 [facility] ([facility]) Color, Urine RFX Laboratory test result [facility] ([facility]) Protein, Urine Auto RFX Laboratory test result [facility] ([facility]) Specific [place] Ur Auto RFX 1.023 1.002-1.035 [facility] ([facility]) Glucose, Urine (Ua) Auto RFX Laboratory test result [facility] ([facility]) Ketone, Urine Auto RFX Laboratory test result [facility] ([facility]) Urobilinogen, Urine Auto RFX 0.2 mg/dL 0.0-2.0 [facility] ([facility]) Bilirubin, Urine Auto RFX Laboratory test result [facility] ([facility]) Leukocyte Esterase Ur Auto RFX [facility] Nitrite, Urine Auto RFX Laboratory test result [facility] ([facility]) WBC, Urine Auto RFX 1 /HPF 0-3 [facility] ([facility]) RBC, Urine Auto RFX 1 /HPF 0-3 [facility] Blood, Urine Blood RFX Laboratory test result [facility] ([facility]) Squam Epithelial Cell Ur Aurfx 1 /HPF 0-6 [facility] ([facility]) Bacteria, Urine Auto RFX Laboratory test result [facility] ([facility]) Hyaline Cast, Urine Auto RFX 0 /LPF 0-1 M [facility] ([facility]) ID Date Data Source [id number] 12/29/2020 11:58:00 AM EST [facility] ([facility]) Name Value Range Interpretation Code Description Data Aidee rce(s) Supporting Document(s) Venous Partial Pressure Co2 38.7 mmHg 38.0-50.0 [facility] ([facility]) Venous PH 7.389 units 7.330-7.430 [facility] ([facility]) Venous Total Co2 24.0 meq/L 24.0-28.0 [facility] ([facility]) Venous Partial Pressure O2 112.6 mmHg 30.0-50.0 [facility] Venous Hco3 22.8 meq/L 23.0-27.0 [facility] Venous Base Excess -1.8 [facility] ([facility]) Venous O2 Saturation 98.4 % 60.0-80.0 [facility] ([facility]) Venous Standard Hco3 23.0 meq/L [facility] ( [facility]) ID Date Data Source [id number] 12/29/2020 11:33:00 AM EST [facility] ([facility]) Name Value Range Interpretation Code Description Data Aidee rce(s) Supporting Document(s) Lipoprotein lipase [Enzymatic activity/volume] in Serum or P lasma 127 U/L 73-393 [facility] ([facility]) Osmolality of Serum or Plasma 320 MOSM/KG 280-301 [facility] ([facility]) ID Date Data Source [id number] 12/29/2020 11:33:00 AM EST [facility] ([facility]) Name Value Range Interpretation Code Description Data Aidee rce(s) Supporting Document(s) Acetone/Ketone 20.49 mg/dL [facility] ([facility]) ID Date Data Source [id number] 12/29/2020 11:33:00 AM EST [facility] ([facility]) Name Value Range Interpretation Code Description Data Aidee rce(s) Supporting Document(s) Blood Urea Nitrogen 56 mg/dL 7-18 [facility] ([facility]) Glucose, Fasting 607 mg/dL 70-100 Above upper panic limits [facility] ([facility]) Creatinine For GFR 1.94 mg/dL 0.70-1.30 [facility] ([facility]) Glomerular Filtration Rate 36.6 [facility] ([facility]) <content>Units are mL/min/1.73 m2</content>
<content></content>
<content>Chronic Kidney Disease Staging per NKF:</content>
<content></content>
<content>Stage I & II GFR >=60 Normal to Mildly Decreased</content>
<content>Stage III GFR 30-59 Moderately Decreased</content>
<content>Stage IV GFR 15-29 Severely Decreased</content>
<content>Stage V GFR <15 Very Little GFR Left</content>
<content>ESRD GFR <15 on RN CORONARY CARE UNIT</content>
<content></content> Sodium Level 129 meq/L 136-145 [facility] ([facility]) Potassium Serum 5.3 meq/L 3.5-5.1 [facility] ([facility]) Chloride Level 94 meq/L 98-107 [facility] ([facility]) Carbon Dioxide Level 26 meq/L 21-32 [facility] ([facility]) Calcium Level 9.7 mg/dL 8.8-10.2 [facility] ([facility]) Anion Gap 9 meq/L 8-16 [facility] [facility] ID Date Data Source [id number] 12/29/2020 11:33:00 AM EST [facility] ([facility]) Name Value Range Interpretation Code Description Data Aidee rce(s) Supporting Document(s) Ast/Sgot 14 U/L 7-37 [facility] [facility] Alkaline Phosphatase 121 U/L 45-117 [facility] Alt/SGPT 25 U/L 12-78 [facility] [facility] Bilirubin,Direct 0.2 mg/dL 0.0-0.2 [facility] ([facility]) Bilirubin,Total 0.7 mg/dL 0.2-1.0 [facility] ([facility]) Total Protein 7.5 GM/DL 6.4-8.2 [facility] ([facility]) Albumin 3.7 GM/DL 3.2-5.2 [facility] [facility] Albumin/Globulin Ratio 1.0 [facility] ([facility]) ID Date Data Source [id number] 12/29/2020 11:33:00 AM EST [facility] ([facility]) Name Value Range Interpretation Code Description Data [facility] Supporting Document(s) Red Blood Count 4.76 10 4.30-6.10 [facility] ([facility]) White Blood Count 7.7 10 4.0-10.0 [facility] ([facility]) Hemoglobin 14.0 g/dL 13.5-17.5 [facility] Hematocrit 40.1 % 42.0-52.0 [facility] Mean Corpuscular Hemoglobin 29.4 pg 27.0-33.0 [facility] ([facility]) Mean Corpuscular Volume 84.2 fl 80.0-96.0 [facility] ([facility]) Red Cell Distribution Width 12.4 % 11.5-14.5 [facility] ([facility]) Mean Corpuscular HGB Conc 34.9 g/dL 32.0-36.5 [facility] NT ([facility]) Neutrophils % 65.0 % 36.0-66.0 [facility] ([facility]) Lymph % 21.5 % 24.0-44.0 [facility] [facility] Platelet Count, Automated 220 10 150-450 [facility] ([facility]) Toole % 9.7 % 2.0-8.0 [facility] [facility] Eos % 2.2 % 0.0-3.0 [facility] [facility] Baso % 1.0 % 0.0-1.0 [facility] [facility] Immature Granulocyte % 0.6 % 0-3.0 [facility] ([facility]) Neutrophils # 5.0 10 1.5-8.5 [facility] ([facility]) Nucleated Red Blood Cell % 0.0 % 0-0 [facility] ([facility]) Lymph # 1.7 10 1.5-5.0 [facility] [facility] Toole # 0.8 10 0.0-0.8 [facility] [facility] Baso # 0.1 10 0.0-0.2 [facility] [facility] Eos # 0.2 10 0.0-0.5 [facility] [facility] ID Date Data Source [id number] 12/29/2020 11:10:00 AM EST [facility] ([facility]) Name Value Range Interpretation Code Description Data Aidee rce(s) Supporting Document(s) Bedside Glucose 571 mg/dL 83-110 Above upper panic limits [facility] ([facility] Doctor Notified ID Date Data Source [id number] 12/29/2020 10:05:00 AM EST [facility] ([facility]) Name Value Range Interpretation Code Description Data Aidee rce(s) Supporting Document(s) Urea nitrogen [Mass/volume] in Serum or Plasma 57 mg/dL 7-18 [facility] ([facility]) Glucose [Mass/volume] in Serum or Plasma 659 mg/dL 74-99 Above upper panic limits [facility] ([facility]) CRITICAL: FAIZAN NOTIFIED NOTE: RESULT VERIFIED. 100-125 mg/dL PRE-DIABETES/FASTING >126 mg/dL DIABETES/FASTING Sodium [Moles/volume] in Serum or Plasma 130 meq/L 136-145 [facility] ([facility]) Creatinine 2.0 mg/dL 0.6-1.3 [facility] Potassium [Moles/volume] in Serum or Plasma 5.1 meq/L 3.5-5.1 [facility] ([facility]) Carbon dioxide, total [Moles/volume] in Serum or Plasma 26 meq/L 21 -32 [facility] ([facility]) Chloride [Moles/volume] in Serum or Plasma 94 meq/L 98-107 [facility] ([facility]) Glomerular filtration rate/1.73 sq M pre dicted among non-blacks [Volume Rate/Area] in Serum or Plasma by Creatinine-based formula (MDRD) 33 mL/min [facility] ([facility]) Calcium [Mass/volume] in Serum or Plasma 10.1 mg/dL 8.5-10.1 [facility] ([facility]) Glomerular filtration rate/1.73 sq M pre dicted among blacks [Volume Rate/Area] in Serum or Plasma by Creatinine-based formula (MDRD) 40 mL/min [facility] ([facility]) <content>CHRONIC KIDNEY DISEASE STAGING PER NKF</content>
<content></content>
<content>STAGE I & II GFR >= 60 NORMAL TO MILDLY DECREASED</content>
<content>STAGE III GFR 30-59 MODERATELY DECREASED</content>
<content>STAGE IV GFR 15-29 SEVERELY DECREASED</content>
<content>STAGE V GFR <15 VERY LITTLE GFR LEFT</content>
<content>ESRD GFR <15 ON RN CORONARY CARE UNIT</content>
<content></content> ID Date Data Source [id number] 12/25/2020 10:05:00 AM EST [facility] ([facility]) Name Value Range Interpretation Code Description Data Aidee rce(s) Supporting Document(s) Hemoglobin A1c/Hemoglobin.total in Blood 13.1 % [facility] Lab Result Notes: Pre-Diabetes 5.7 - 6.4 % Diabetes = or > 6.5% Glucose mean value [Mass/volume] in Blood Estimated fr om glycated hemoglobin 329 mg/dL 60-110 [facility] ([facility] ) ID Date Data Source [id number] 12/25/2020 10:05:00 AM EST [facility] ([facility]) Name Value Range Interpretation Code Description Data Aidee rce(s) Supporting Document(s) Urine Appearance Laboratory test result [facility] ([facility]) Urine Color [facility] Urine PH 5.0 units 5.0-9.0 [facility] [facility]) Specific gravity of Urine 1.015 1.005-1.030 [facility] ([facility]) Urine Leukocytes Laboratory test result [facility] ([facility]) Urine Blood Laboratory test result [facility] ([facility]) Urine Protein Laboratory test result 0-0 [facility] ([facility]) Glucose [Presence] in Urine Laboratory test result Abnormal (applies to non- numeric results) [facility] ([facility]) Urine Nitrite Laboratory test result [facility] ([facility]) Urine Ketone Laboratory test result Abnormal (applies to non-numeric results) [facility] ([facility]) Urine Urobilinogen 0.2 mg/dL 0.2-1.0 [facility] ([facility]) Bilirubin.total [Mass/volume] in Serum or Plasma Laboratory test resu lt [facility] ([facility]) ID Date Data Source [id number] 12/25/2020 10:05:00 AM EST [facility] ([facility]) Name Value Range Interpretation Code Description Data Aidee rce(s) Supporting Document(s) Glucose [Mass/volume] in Serum or Plasma 644 mg/dL 74-99 Above upper panic limits [facility] ([facility]) CRITICAL: faizan philip notified NOTE: DILUTED AND VERIFIED 100-125 mg/dL PRE-DIABETES/FASTING >126 mg/dL DIABETES/FASTING Urea nitrogen [Mass/volume] in Serum or Plasma 48 mg/dL 7-18 [facility] ([facility]) Creatinine 2.1 mg/dL 0.6-1.3 [facility] Sodium [Moles/volume] in Serum or Plasma 131 meq/L 136-145 [facility] ([facility]) NOTE: RESULT VERIFIED. Potassium [Moles/volume] in Serum or Plasma 4.9 meq/L 3.5-5.1 [facility] ([facility]) Chloride [Moles/volume] in Serum or Plasma 92 meq/L 98-107 [facility] ([facility]) Calcium [Mass/volume] in Serum or Plasma 10.1 mg/dL 8.5-10.1 [facility] Carbon dioxide, total [Moles/volume] in Serum or Plasma 26 meq/L 21 -32 [facility] ([facility]) Glomerular filtration rate/1.73 sq M pre dicted among non-blacks [Volume Rate/Area] in Serum or Plasma by Creatinine-based formula (MDRD) 31 mL/min [facility] ([facility]) Glomerular filtration rate/1.73 sq M pre dicted among blacks [Volume Rate/Area] in Serum or Plasma by Creatinine-based formula (MDRD) 38 mL/min [facility] ([facility]) <content>CHRONIC KIDNEY DISEASE STAGING PER NKF</content>
<content></content>
<content>STAGE I & II GFR >= 60 NORMAL TO MILDLY DECREASED</content>
<content>STAGE III GFR 30-59 MODERATELY DECREASED</content>
<content>STAGE IV GFR 15-29 SEVERELY DECREASED</content>
<content>STAGE V GFR <15 VERY LITTLE GFR LEFT</content>
<content>ESRD GFR <15 ON RN CORONARY CARE UNIT</content>
<content></content> ID Date Data Source [id number] 12/22/2020 02:07:00 PM EST [facility] ([facility]) Name Value Range Interpretation Code Description Data Aidee rce(s) Supporting Document(s) Bacteria identified in Urine by Culture Laboratory test result [facility] ([facility]) FULL REPORT IN LAB NOTES (eCW and [facility] ). NO GROWTH ID Date Data Source [id number] 12/22/2020 02:07:00 PM EST [facility] ([facility]) Name Value Range Interpretation Code Description Data Aidee rce(s) Supporting Document(s) Urine Appearance Laboratory test result [facility] ([facility]) Urine Color Laboratory test result [facility] ([facility]) Specific gravity of Urine 1.010 1.005-1.030 [facility] ([facility]) Urine PH 6.0 units 5.0-9.0 [facility] ([place] [facility]) Urine Blood Laboratory test result Abnormal (applies to non-numeric results) [facility] ([facility]) Urine Leukocytes Laboratory test result [facility] ([facility]) Urine Protein Laboratory test result 0-0 [facility] ([facility]) Glucose [Presence] in Urine Laboratory test result Abnormal (applies to non- numeric results) [facility] ([facility]) Urine Nitrite Laboratory test result [facility] ([facility]) Urine Ketone Laboratory test result [facility] ([facility]) Bilirubin.total [Mass/volume] in Serum or Plasma Laboratory test resu lt [facility] ([facility]) Urine Urobilinogen 0.2 mg/dL 0.2-1.0 [facility] ([facility]) ID Date Data Source [id number] 11/19/2020 12:00:00 AM EDT [facility] Name Value Range Interpretation Code Description Data Aidee rce(s) Supporting Document(s) SARS-CoV2 Rapid Antigen Negative [facility] This lab was reported by [facility]. ID Date Data Source [id number] 09/20/2020 01:37:00 PM EDT [facility] ([facility]) Name Value Range Interpretation Code Description Data Aidee rce(s) Supporting Document(s) Glucose [Mass/volume] in Serum or Plasma 153 mg/dL 74-99 [facility] ([facility]) 100-125 mg/dL PRE-DIABETES/FASTING >126 mg/dL DIABETES/FASTING Urea nitrogen [Mass/volume] in Serum or Plasma 32 mg/dL 7-18 [facility] ([facility]) Creatinine 1.6 mg/dL 0.6-1.3 [facility] Sodium [Moles/volume] in Serum or Plasma 142 meq/L 136-145 [facility] ([facility]) Chloride [Moles/volume] in Serum or Plasma 105 meq/L 98-107 [facility] ([facility]) Potassium [Moles/volume] in Serum or Plasma 4.0 meq/L 3.5-5.1 [facility] ([facility] Carbon dioxide, total [Moles/volume] in Serum or Plasma 28 meq/L 21 -32 [facility] ([place] [facility]) Calcium [Mass/volume] in Serum or Plasma 9.9 mg/dL 8.5-10.1 [facility] ([place] [facility]) Glomerular filtration rate/1.73 sq M pre dicted among blacks [Volume Rate/Area] in Serum or Plasma by Creatinine-based formula (MDRD) 52 mL/min [facility] ([facility]) <content>CHRONIC KIDNEY DISEASE STAGING PER NKF</content>
<content></content>
<content>STAGE I & II GFR >= 60 NORMAL TO MILDLY DECREASED</content>
<content>STAGE III GFR 30-59 MODERATELY DECREASED</content>
<content>STAGE IV GFR 15-29 SEVERELY DECREASED</content>
<content>STAGE V GFR <15 VERY LITTLE GFR LEFT</content>
<content>ESRD GFR <15 ON RN CORONARY CARE UNIT</content>
<content></content> Glomerular filtration rate/1.73 sq M pre dicted among non-blacks [Volume Rate/Area] in Serum or Plasma by Creatinine-based formula (MDRD) 43 mL/min [facility] ([facility]) ID Date Data Source [id number] 06/02/2020 01:24:00 PM EDT [facility]) Name Value Range Interpretation Code Description Data Aidee rce(s) Supporting Document(s) Surgical pathology study Laboratory test result [facility]) FINAL DIAGNOSIS A-Submitted as "Wagner's esophagus #1", biopsy: Wagner's mucosa present. Chronic inflammation. No evidence of premalignant dysplasia. Squamous mucosa with reactive and reparative changes. B-Submitted as "Wagner's esophagus #2", biopsy: Wagner's mucosa present. Chronic inflammation. No evidence of premalignant dysplasia. Squamous mucosa with reactive and reparative changes. 06/06/2020 - 850 CLINICAL DIAGNOSIS Gastric ulcers, Wagner's esophagus, heartburn 06/05/2020 - 1236 GROSS DIAGNOSIS A - Received in formalin labeled "Wagner's esophagus #1" and consists of fragments of tissue 0.2 x 0.2 x 0.1 cm. All in one. B - Received in formalin labeled "Wagner's esophagus #2" and consists of fragments of tissue 0.2 x 0.2 x 0.1 cm. All in one. -OA 06/05/2020 - 6 Signed BRYSON CARRENO MD 06/06/2020 0852 ID Date Data Source [id number] 05/28/2020 11:55:00 AM EDT [facility] Name Value Range Interpretation Code Description Data Aidee rce(s) Supporting Document(s) SARS-CoV-2 (COVID-19) RNA [Presence] in Respiratory specimen by CHELITA with probe detection Not Detected [facility] This lab was ordered by [facility] and reported by [facility]. ID Date Data Source [id number] 03/22/2020 09:47:00 AM EST [facility] ([facility]) Name Value Range Interpretation Code Description Data Aidee rce(s) Supporting Document(s) Prostate specific Ag [Mass/volume] in Serum or Plasma 0.96 ng/mL [facility] ([facility]) This assay was performed on the Siemens Dimension EXL using the B- Galactosidase/CPRG methodology and should not be compared interchangeably with other methods. The PSA should not be used alone as a screening test for the presence or absence of malignant disease. ID Date Data Source [id number] 03/22/2020 09:47:00 AM EST [facility] Name Value Range Interpretation Code Description Data Aidee rce(s) Supporting Document(s) Cholesterol [Mass/volume] in Serum or Plasma 146 mg/dL 131-200 [facility] ([facility]) Cholesterol in LDL [Mass/volume] in Serum or Plasma by calcu lation 88 CALC 50-159 [facility] ([facility]) Triglyceride [Mass/volume] in Serum or Plasma 93 mg/dL 30-150 [facility] ([facility]) Cholesterol in HDL [Mass/volume] in Serum or Plasma 39 mg/dL 35-60 [facility] ([facility]) ID Date Data Source [id number] 03/22/2020 09:47:00 AM EST [facility] ([facility]) Name Value Range Interpretation Code Description Data Aidee rce(s) Supporting Document(s) Glucose [Mass/volume] in Serum or Plasma 102 mg/dL 74-99 [facility] ([facility]) 100-125 mg/dL PRE-DIABETES/FASTING >126 mg/dL DIABETES/FASTING Urea nitrogen [Mass/volume] in Serum or Plasma 23 mg/dL 7-18 [facility] ([facility]) Potassium [Moles/volume] in Serum or Plasma 4.4 meq/L 3.5-5.1 [facility] ([facility]) Sodium [Moles/volume] in Serum or Plasma 146 meq/L 136-145 [facility] ([facility]) Creatinine 1.4 mg/dL 0.6-1.3 [facility] ([facility]) Carbon dioxide, total [Moles/volume] in Serum or Plasma 32 meq/L 21 -32 [facility] ([facility]) Calcium [Mass/volume] in Serum or Plasma 9.3 mg/dL 8.5-10.1 [facility] ([facility]) Chloride [Moles/volume] in Serum or Plasma 105 meq/L 98-107 [facility] ([facility]) Total Bilirubin 0.5 mg/dL 0.2-1.0 [facility] ([facility]) Aspartate aminotransferase [Enzymatic activity/volume] in Serum or Plasma 20 U/L 15-37 [facility] ([facility] ) Alkaline phosphatase isoenzyme [Units/volume] in Serum or Pl asma 106 mg/dL 46-116 [facility] ([facility]) Alanine aminotransferase [Enzymatic activity/volume] in Seru m or Plasma 26 U/L 12-78 [facility] Albumin [Mass/volume] in Serum or Plasma 4.0 g/dL 3.4-5.0 [facility] Proteinase 3 Ab [Units/volume] in Serum 7.4 g/dL 6.4-8.2 [facility] A/G Ratio 1.18 CALC 1.00-1.90 [facility] ([facility]) Glomerular filtration rate/1.73 sq M pre dicted among non-blacks [Volume Rate/Area] in Serum or Plasma by Creatinine-based formula (MDRD) 50 mL/min [facility] Glomerular filtration rate/1.73 sq M pre dicted among blacks [Volume Rate/Area] in Serum or Plasma by Creatinine-based formula (MDRD) Laboratory test result [facility] ([facility]) <content>CHRONIC KIDNEY DISEASE STAGING PER NKF</content>
<content></content>
<content>STAGE I & II GFR >= 60 NORMAL TO MILDLY DECREASED</content>
<content>STAGE III GFR 30-59 MODERATELY DECREASED</content>
<content>STAGE IV GFR 15-29 SEVERELY DECREASED</content>
<content>STAGE V GFR <15 VERY LITTLE GFR LEFT</content>
<content>ESRD GFR <15 ON RN CORONARY CARE UNIT</content>
<content></content> ID Date Data Source [id number] 03/22/2020 09:47:00 AM EST [facility] Name Value Range Interpretation Code Description Data Aidee rce(s) Supporting Document(s) Leukocytes [#/volume] in Blood by Automated count 8.9 x10*3/UL 4.1-10 .9 [facility] Erythrocytes [#/volume] in Blood by Automated count 4.96 x10*6/UL 4.2 0-6.30 [facility]) MCV 85.4 fL 80.0-97.0 [facility] ([facility]) Hematocrit [Volume Fraction] of Blood by Automated count 42.4 % 3 7.0-51.0 [facility] ([facility]) Hemoglobin [Mass/volume] in Blood 14.5 g/dL 12.0-18.0 [facility] ([facility]) MCH 29.2 pg 26.0-32.0 [facility]) Erythrocyte distribution width [Ratio] by Automated count 13.3 % 11.6-13.7 [facility] ([facility]) MCHC 34.2 g/dL 31.0-38.0 [facility]) Platelets [#/volume] in Blood by Automated count 198 x10*3/UL 140-440 [facility] ([facility]) MPV 9.2 FL 7.8-11.0 [facility]) Lymph % 25.2 % 10.0-58.5 [facility] Neut % 67.8 % 37.0-92.0 [facility] Mid % 7.0 % 1.7-9.3 [facility] Lymph # 2.2 x10*3/UL 0.6-4.1 [facility] ([facility]) Mid # 0.7 x10*3/UL 0.1-0.6 [facility] ([facility]) Neut # 6.0 x10*3/UL 2.0-7.8 [facility] ([facility]) ID Date Data Source [id number] 02/22/2020 09:08:00 [place] [address] OPERATIVE SUMMARYNAME: NITHYA Blanco DATE OF : 1950TTENDING PHYS: TOY TRAN MD DATE: 02/18/20 MR#: [id number] OF PROCEDURE: 02/18/2020REOPERATIVE DIAGNOSIS: Left testicular/epididymal pain and mass.POST- OPERATIVE DIAGNOSIS: Left testicular/epididymal pain and mass.PROCEDURE PERFORMED: Left scrotal orchiectomy.ATTENDING SURGEON: Dr. Toy Tran.PHYSICIAN SHAKE SPLITTER: BRITTANY Lowe.ANESTHESIA: General.ESTIMATED BLOOD LOSS: Minimal.COMPLICATIONS: None.DRAINS: None.DISPOSITION: To the recovery room.CONDITION: Stable.INDICATIONS FOR PROCEDURE:Kwabena Barriga is a 69-year-old gentleman previously seen and evaluated with a left testicularpain and epididymal mass. He had undergone an ultrasound, which showed a hypoechoic,heterogeneous, mildly vascular mass in the area of the left epididymal tail with bilateralvaricoceles. He, after counseling with concerns of testicular cancer, opted for a left orchiectomy.DETAILS OF PROCEDURE:After a detailed informed consent was obtained from the patient, he was wheeled into the operatingroom and installed on the operating table in supine position. General anesthesia was then induced,and the penoscrotal area was shaved, cleaned, prepped, and draped in the usual sterile fashion.After the proper time-out procedures were carried out, a left hemiscrotal incision was then made,and this was carried down through the subcutaneous tissues. The tunica vaginalis was then opened,and the testicle and the epididymis were then examined. The mass was noted to be free of thetesticle and attached to the epididymis. However, patient had declined the possibility of us making [address] [place] [address] OPERATIVE SUMMARYNAME: NITHYA Blanco DATE OF : 1950TTENDING PHYS: OTY TRAN MD DATE: 02/18/20 MR#: [id number] decision under anesthesia and had requested an orchiectomy. The spermatic cord was thendissected proximally and s eparated into two, and doubly ligated and transected. This was doneusing 0 silk sutures. After ensuring that there was adequate hemostasis, the spermatic cord wastransected and the testicle and spermatic cord were handed over as a specimen. The incision wasthen closed in two layers, first using 3-0 Vicryl for the dartos layer followed by 3-0 chromic catgutfor the skin. At this point, with the operation now completed, the anesthesia was reversed. Thepatient was transferred onto a stretcher, on which he was transferred to the Ambulatory SurgicalUnit in stable condition. The operation was well-tolerated, and there were no complications.Copies of this report to my office.DD: TOY TRAN MD 02/21/20 21:09DT: NAZANIN 02/22/20 08:37DS: TOY TRAN MD 03/14/20 16:05 2 Name Value Range Interpretation Code Description Data [facility] rce(s) Supporting Document(s) ID Date Data Source [id number] 03/03/2020 03:33:00 PM EST [facility] ([facility] Name Value Range Interpretation Code Description Data Aidee rce(s) Supporting Document(s) Appearance, Urine Laboratory test result Normal (applies to non-numeric results) [facility] ([facility] ) PH,Urine 5.0 units 5.0-9.0 Normal (applies to non-numeric resul ts) [facility] ([facility] Specific [place] Urine Auto 1.018 1.002-1.035 Norm al (applies to non-numeric results) [facility] ([facility] ) Color, Urine Laboratory test result Normal (applies to non -numeric results) [facility] ([facility] Ketone, Urine Auto Laboratory test result Normal (applies to non-numeric results) [facility] ([facility] ) Protein, Urine Auto Laboratory test result Katiana l (applies to non-numeric results) [facility] ([facility] ) Glucose, Urine (Ua) Auto Laboratory test result Normal (applies to non-numeric results) [facility] ([facility] ) Bilirubin, Urine Auto Laboratory test result Nor mal (applies to non-numeric results) [facility] ([facility] ) Urobilinogen, Urine Auto 0.2 mg/dL 0.0-2.0 Normal (applies to non-numeric results) [facility] ([facility] ) Nitrite, Urine Auto Laboratory test result Katiana l (applies to non-numeric results) [facility] ([facility] ) Blood, Urine Blood Laboratory test result Normal (applies to non-numeric results) [facility] ([facility] ) WBC, Urine Auto 0 /HPF 0-3 Normal (applies to non-numeric results) [facility] ([facility] Leukocyte Esterase, Urine Auto Laboratory test result Normal (applies to non- numeric results) [facility] ([facility] RBC, Urine Auto 1 /HPF 0-3 Normal (applies to non-numeric results) [facility] ([facility] Bacteria, Urine Auto Laboratory test result Norm al (applies to non-numeric results) [facility] ([facility] ) Squamous Epithelial Cell Ur AU 0 /HPF 0-6 N ormal (applies to non-numeric results) [facility] ([facility] ) Hyaline Cast, Urine Auto 0 /LPF 0-1 Normal (applies to non -numeric results) [facility] ([facility] ID Date Data Source [id number] 03/01/2020 08:45:00 AM EST [facility] ([facility]) Name Value Range Interpretation Code Description Data Aidee rce(s) Supporting Document(s) Color of Urine Laboratory test result [facility] ([facility]) Appearance of Urine Laboratory test result [facility] ([facility]) Leukocytes Laboratory test result [facility] ([facility]) pH of Urine by Test strip 5 [facility] NT ([facility]) Spec [place] 1.020 [facility] ([facility]) Inhouse Glucose Laboratory test result [facility] ([facility]) Nitrate [Presence] in Urine Laboratory test result [facility] ([facility]) Protein [Presence] in Urine by Test strip Laboratory test result [facility] ([facility]) Ketones [Presence] in Urine by Test strip Laboratory test result [facility] ([facility]) Bilirubin.total [Presence] in Urine by Test strip Laboratory test res ult [facility] ([facility]) Urobilinogen Laboratory test result [facility] ([facility]) Blood type and Indirect antibody screen panel - Blood Laboratory test result [facility] ([facility]) ID Date Data Source [id number] 02/14/2020 01:34:00 PM EST [facility] ([facility] Name Value Range Interpretation Code Description Data Aidee rce(s) Supporting Document(s) Glucose [Mass/volume] in Serum or Plasma 103 mg/dL 65-99 Above high normal [facility] ([facility] Creatinine [Mass/volume] in Serum or Plasma 1.27 mg/dL 0.76-1.27 [facility] ([facility] BUN 23 mg/dL 8-27 [facility] ([facility] eGFR If NonAfricn Am 57 mL/min/1.73 Below low normal [facility] ([facility] Urea nitrogen/Creatinine [Mass Ratio] in Serum or Plasma 18 1 0-24 [facility] ([facility] Sodium [Moles/volume] in Serum or Plasma 142 mmol/L 134-144 [facility] ([facility] eGFR If Africn Am 66 mL/min/1.73 [facility] ([facility] Potassium [Moles/volume] in Serum or Plasma 4.7 mmol/L 3.5-5.2 [facility] ([facility] Chloride [Moles/volume] in Serum or Plasma 103 mmol/L 96-106 [facility] ([facility] Carbon dioxide, total [Moles/volume] in Serum or Plasma 25 mmol/L 20 -29 [facility] ([facility] Protein [Mass/volume] in Serum or Plasma 6.9 g/dL 6.0-8.5 [facility] ([facility] Calcium [Mass/volume] in Serum or Plasma 9.8 mg/dL 8.6-10.2 [facility] ([facility] Albumin [Mass/volume] in Serum or Plasma 4.5 g/dL 3.8-4.8 [facility] ([facility] Albumin/Globulin [Mass Ratio] in Serum or Plasma 1.9 1.2-2.2 [facility] ([facility] Globulin [Mass/volume] in Serum by calculation 2.4 g/dL 1.5-4.5 [facility] ([facility] Bilirubin.total [Mass/volume] in Serum or Plasma 0.6 mg/dL 0.0-1.2 [facility] ([facility] Alkaline phosphatase [Enzymatic activity/volume] in Serum or Plasma 88 IU/L 39-117 [facility] ([facility] Aspartate aminotransferase [Enzymatic activity/volume] in Serum or Plasma 23 IU/L 0-40 [facility] ([facility] Alanine aminotransferase [Enzymatic activity/volume] in Seru m or Plasma 15 IU/L 0-44 [facility] ID Date Data Source [id number] 02/14/2020 01:34:00 PM EST [facility] ([facility] Name Value Range Interpretation Code Description Data Aidee rce(s) Supporting Document(s) Erythrocytes [#/volume] in Blood by Automated count 5.13 x10E6/uL 4.1 4-5.80 [facility] ([facility] Hemoglobin [Mass/volume] in Blood 14.7 g/dL 13.0-17.7 [facility] ([facility] Leukocytes [#/volume] in Blood by Automated count 8.2 x10E3/uL 3.4-10 .8 [facility] ([facility] Erythrocyte mean corpuscular volume [Entitic volume] by Auto mated count 86 fL 79-97 [facility] ([facility] Hematocrit [Volume Fraction] of Blood by Automated count 43.9 % 3 7.5-51.0 [facility] ([facility] Erythrocyte mean corpuscular hemoglobin concentration [Mass/volume] by Automated count 33.5 g/dL 31.5-35.7 [facility] ([facility] Erythrocyte distribution width [Ratio] by Automated count 12.6 % 11.6-15.4 [facility] ([facility] Erythrocyte mean corpuscular hemoglobin [Entitic mass] by Automated count 28.7 pg 26.6-33.0 [facility] ([facility] Lymphs 24 % [facility] ([facility] Platelets [#/volume] in Blood by Automated count 223 x10E3/uL 150-450 [facility] ([facility] Neutrophils 63 % [facility] Eosinophils/100 leukocytes in Blood by Automated count 3 % [facility] ([facility] Monocytes/100 leukocytes in Blood by Automated count 8 % [facility] ([facility] Basophils/100 leukocytes in Blood by Automated count 1 % [facility] ([facility] Immature cells [#/volume] in Blood Laboratory test result [facility] ([facility] Neutrophils [#/volume] in Blood by Automated count 5.2 x10E3/uL 1.4-7 .0 [facility] ([facility] Lymphocytes [#/volume] in Blood 1.9 x10E3/uL 0.7-3.1 [facility] ([facility] Monocytes [#/volume] in Blood 0.6 x10E3/uL 0.1-0.9 [facility] ([facility] Basophils [#/volume] in Blood by Automated count 0.1 x10E3/uL 0.0-0.2 [facility] ([facility] Eosinophils [#/volume] in Blood by Automated count 0.3 x10E3/uL 0.0-0 .4 [facility] ([facility] Immature granulocytes [#/volume] in Blood by Automated count 0.1 x10E3/uL 0.0-0.1 [facility] ([facility] Nucleated erythrocytes/100 leukocytes [Ratio] in Blood by Automated count Laboratory test result [facility] ([facility] Immature granulocytes/100 leukocytes in Blood by Automated count 1 % [facility] ([facility] Morphology [Interpretation] in Blood Narrative Laboratory test result [facility] ([facility] ID Date Data Source [id number] 02/14/2020 09:00:00 AM EST [facility] Name Value Range Interpretation Code Description Data Aidee rce(s) Supporting Document(s) SARS coronavirus 2 RNA Not Detected [facility] This lab was ordered by Aquilino plummer and reported by [facility]. ID Date Data Source [id number] 02/16/2020 07:08:00 AM EST [facility] Name Value Range Interpretation Code Description Data Aidee rce(s) Supporting Document(s) SARS-CoV-2, CHELITA Not Detected Not Detected [facility] This nucleic acid amplification test was developed and its performancecharacteristics determined by [employer]. Nucleic acidamplification tests include PCR and TMA. This test has not been FDAcleared or approved. This test has been authorized by FDA under anEmergency Use Authorization (EUA). This test is only authorized forthe duration of time the declaration that circumstances existjustifying the authorization of the emergency use of in vitrodiagnostic tests for detection of SARS-CoV-2 virus and/or diagnosisof COVID-19 infection under section 564(b)(1) of the Act, 21 U.S.C.360bbb-3(b) (1), unless the authorization is terminated or revokedsooner.When diagnostic testing is negative, the possibility of a falsenegative result should be considered in the context of a patient'srecent exposures and the presence of clinical signs and symptomsconsistent with COVID- 19. An individual without symptoms of COVID-19and who is not shedding SARS-CoV-2 virus would expect to have anegative (not detected) result in this assay. ID Date Data Source [id number] 01/04/2020 07:17:00 AM EST [facility] ([facility]) Name Value Range Interpretation Code Description Data Aidee rce(s) Supporting Document(s) Appearance of Urine Laboratory test result [facility] ([facility]) Color of Urine Laboratory test result [facility] ([facility]) Spec [place] 1.020 [facility] ([facility]) Leukocytes Laboratory test result [facility] ([facility]) pH of Urine by Test strip 5 [facility] NT ([facility]) Nitrate [Presence] in Urine Laboratory test result [facility] ([facility]) Protein [Presence] in Urine by Test strip Laboratory test result [facility] ([facility]) Inhouse Glucose Laboratory test result [facility] ([facility]) Ketones [Presence] in Urine by Test strip Laboratory test result [facility] ([facility]) Bilirubin.total [Presence] in Urine by Test strip Laboratory test res ult [facility]) Urobilinogen Laboratory test result [facility] ([facility]) Blood type and Indirect antibody screen panel - Blood Laboratory test result [facility] ([facility]) ID Date Data Source [id number] 11/11/2019 11:45:00 AM EDT [facility] ) Name Value Range Interpretation Code Description Data Aidee rce(s) Supporting Document(s) Surgical pathology study Laboratory test result [facility] ([facility], ) <content>FINAL DIAGNOSIS</content>
< content></content>
<content>A - Stomach, biopsy:</content>
<content>Gastric mucosa with reactive gastropathy and ulcer.</content>
<content>No evidence of H. pylori-like organisms on H&E stain.</content>
<content></content>
<content>B - Esophagus, biopsy:</content>
<content>Esophageal mucosa with chronic inflammation, intestinal metaplasia,</content>
<content>necroinflammatory tissue suggestive of ulcer.</content>
<content>No evidence of high grade dysplasia or malignancy.</content>
<content>11/12/2019 - 1534</content>
<content></content>
<content>CLINICAL DIAGNOSIS</content>
<content></content>
<content>Colon polyps, heartburn</content>
<content>11/11/2019 - 1500</content>
<content></content>
<content>GROSS DIAGNOSIS</content>
<content></content>
<content>A - Received in formalin labeled "biopsy gastritis" and consists of four</content>
<content>fragments of shah tissue measuring 0.4 x 0.3 x 0.2 cm. in aggregate. All</content>
<content>in one.</content>
<content></content>
<content>B - Received in formalin labeled "esophagitis biopsy" and consists of</content>
<content>multiple fragments of shah tissue measuring 0.5 x 0.3 x 0.2 cm. in</content>
<content>aggregate. All in one.</content>
<content>-SV</content>
<content>11/11/2019 - 1500</content>
<content></content>
<content>Signed VANE HERRON MD 11/12/2019 1534</content>
<content></content> ID Date Data Source [id number] 11/06/2019 10:00:00 AM EDT [facility] Name Value Range Interpretation Code Description Data Aidee rce(s) Supporting Document(s) SARS coronavirus 2 RNA [facility] This lab was ordered by [facility] and reported by [facility]. Procedure Social History Code Duration Value Status Description Data Source(s ) Smoking 04/12/2020 12:00:00 AM EST Patient has never smoked co mpleted Patient has never smoked [facility] ([facility]) Vital Signs ID Date Data Source UNK Name Value Range Interpretation Code Description Data Source(s) Body height 69.25 [in_i] 69.25 [in_i] [facility] ([facility]) 5'9.25" Body weight 213.00 [lb_av] 213.00 [lb_av] [facility] T ([facility]) Body mass index (BMI) [Ratio] 31.2 kg/m2 31.2 k g/m2 [facility] Systolic blood pressure 122 mm[Hg] 122 mm[Hg] [facility] Diastolic blood pressure 60 mm[Hg] 60 mm[Hg] [facility]) Heart rate 98 /min 98 /min [facility] ([facility]) Systolic blood pressure 104 mm[Hg] 104 mm[Hg] ED[facility]ENRY ([facility]) Diastolic blood pressure 60 mm[Hg] 60 mm[Hg] [facility] ([facility]) Heart rate 94 /min 94 /min [facility] Body height 69.25 [in_i] 69.25 [in_i] [facility] 5'9.25" Body weight 212.00 [lb_av] 212.00 [lb_av] [facility] T ([facility]) Body mass index (BMI) [Ratio] 31.1 kg/m2 31.1 k g/m2 [facility] ([facility]) Systolic blood pressure 102 mm[Hg] 102 mm[Hg] M EDENT ([facility]) RT Arm Diastolic blood pressure 60 mm[Hg] 60 mm[Hg] [facility] ([facility]) RT Arm Heart rate 92 /min 92 /min [facility] Body height 69.25 [in_i] 69.25 [in_i] [facility] 5'9.25" Body weight 215.25 [lb_av] 215.25 [lb_av] [facility] T ([facility]) Body mass index (BMI) [Ratio] 31.6 kg/m2 31.6 k g/m2 [facility] ([facility]) Oxygen saturation in Arterial blood by Pulse oximetry 98 % 98 % [facility] ([facility]) RM Air Body height 69.25 [in_i] 69.25 [in_i] [facility] 5'9.25" Body mass index (BMI) [Ratio] 34.4 kg/m2 34.4 k g/m2 [facility] ([facility]) Systolic blood pressure 118 mm[Hg] 118 mm[Hg] [facility] ([facility]) Diastolic blood pressure 68 mm[Hg] 68 mm[Hg] [facility] ([facility]) Heart rate 94 /min 94 /min MEDENT ([facility]) Body weight 235.00 [lb_av] 235.00 [lb_av] MEDEN T ([facility]) Systolic blood pressure 139 mm[Hg] 139 mm[Hg] EDENT ([facility]) Diastolic blood pressure 74 mm[Hg] 74 mm[Hg] MEDENT ([facility]) Heart rate 87 /min 87 /min MEDENT ([facility]) Respiratory rate 20 /min 20 /min [facility] ( [facility]) Oxygen saturation in Arterial blood by Pulse oximetry 94 % 94 % MEDENT ([facility]) Body height 69 [in_i] 69 [in_i] [facility] ([facility]) 5'9" Diastolic blood pressure 82 mm[Hg] 82 mm[Hg] [facility] ([facility]) [place] body weight 160 [lb_av] 160 [lb_av] MEDEN T ([facility]) Body weight 104.328 kg 104.328 kg [facility] ([facility]) Body surface area Derived from formula 2.19 m2 2.19 m2 [facility] ([facility]) Body weight 230.00 [lb_av] 230.00 [lb_av] MEDEN T ([facility]) Body mass index (BMI) [Ratio] 34.0 kg/m2 34.0 k g/m2 [facility] ([facility]) Systolic blood pressure 126 mm[Hg] 126 mm[Hg] [facility] ([facility]) Body mass index (BMI) [Ratio] 33.7 kg/m2 33.7 k g/m2 [facility] ([facility]) Systolic blood pressure 108 mm[Hg] 108 mm[Hg] M [facility]) RT Arm Diastolic blood pressure 70 mm[Hg] 70 mm[Hg] [facility] ([facility]) RT Arm Heart rate 80 /min 80 /min MEDENT ([facility]) Body height 69.25 [in_i] 69.25 [in_i] MEDENT ([facility]) 5'9.25" Body weight 230.00 [lb_av] 230.00 [lb_av] MEDEN T ([facility]) Body height 69.5 [in_i] 69.5 [in_i] MEDENT ([facility] 5'9.50" Heart rate 86 /min 86 /min MEDENT ([facility] Body weight 231.00 [lb_av] 231.00 [lb_av] MEDEN T ([facility] [place] body weight 160 [lb_av] 160 [lb_av] MEDEN T ([facility] Body mass index (BMI) [Ratio] 33.6 kg/m2 33.6 k g/m2 MEDENT ([facility] Oxygen saturation in Arterial blood by Pulse oximetry 98 % 98 % MEDENT ([facility] Respiratory rate 18 /min 18 /min MEDENT ( [facility] Systolic blood pressure 118 mm[Hg] 118 mm[Hg] M EDENT ([facility] Diastolic blood pressure 78 mm[Hg] 78 mm[Hg] MEDENT ([facility] Body temperature 97.2 [degF] 97.2 [degF] MEDENT ([facility] Systolic blood pressure 152 mm[Hg] 152 mm[Hg] M [facility]) Diastolic blood pressure 80 mm[Hg] 80 mm[Hg] MEDENT ([facility]) Heart rate 85 /min 85 /min [facility] ([facility]) Body temperature 97.0 [degF] 97.0 [degF] MEDENT ([facility]) Respiratory rate 18 /min 18 /min [facility] ( [facility]) Oxygen saturation in Arterial blood by Pulse oximetry 98 % 98 % MEDENT ([facility]) Body weight 228.50 [lb_av] 228.50 [lb_av] MEDEN T ([facility]) Body weight 103.648 kg 103.648 kg MEDENT ([facility]) Body height 69 [in_i] 69 [in_i] [facility] ([facility]) 5'9" Body mass index (BMI) [Ratio] 33.7 kg/m2 33.7 k g/m2 [facility] ([facility]) Body surface area Derived from formula 2.19 m2 2.19 m2 [facility] ([facility]) Body height 69.5 [in_i] 69.5 [in_i] MEDENT ([facility] 5'9.50" Oxygen saturation in Arterial blood by Pulse oximetry 97 % 97 % MEDENT ([facility] Respiratory rate 16 /min 16 /min MEDENT ( [facility] Systolic blood pressure 120 mm[Hg] 120 mm[Hg] M EDENT ([facility] Body weight 226.00 [lb_av] 226.00 [lb_av] MEDEN T ([facility] [place] body weight 160 [lb_av] 160 [lb_av] MEDEN T ([facility] Body mass index (BMI) [Ratio] 32.9 kg/m2 32.9 k g/m2 MEDENT ([facility] Diastolic blood pressure 78 mm[Hg] 78 mm[Hg] MEDENT ([facility] Body temperature 98.6 [degF] 98.6 [degF] MEDENT ([facility] Heart rate 80 /min 80 /min MEDENT ([facility] Systolic blood pressure 139 mm[Hg] 139 mm[Hg] M [facility] ([facility]) Diastolic blood pressure 89 mm[Hg] 89 mm[Hg] MEDENT ([facility]) Heart rate 75 /min 75 /min MEDENT ([facility]) Respiratory rate 20 /min 20 /min MEDENT ( [facility]) Oxygen saturation in Arterial blood by Pulse oximetry 95 % 95 % MEDENT ([facility]) Systolic blood pressure 118 mm[Hg] 118 mm[Hg] M EDENT ([facility] Diastolic blood pressure 76 mm[Hg] 76 mm[Hg] MEDENT ([facility] Body mass index (BMI) [Ratio] 31.3 kg/m2 31.3 k g/m2 MEDENT ([facility] Oxygen saturation in Arterial blood by Pulse oximetry 96 % 96 % MEDENT ([facility] Body temperature 98.2 [degF] 98.2 [degF] MEDENT ([facility] Heart rate 104 /min 104 /min MEDENT ([facility] Respiratory rate 18 /min 18 /min MEDENT ( [facility] Body height 69.5 [in_i] 69.5 [in_i] [place] ([facility] 5'9.50" Body weight 215.00 [lb_av] 215.00 [lb_av] MEDEN T ([facility] [place] body weight 160 [lb_av] 160 [lb_av] MEDEN T ([facility] ID Date Data Source [id number] 03/14/2020 04:05:52 PM EST [facility] Name Value Range Interpretation Code Description Data Source(s) WEIGHT RECORDED 217.00 pounds 217.00 pounds [facility] Height 69 Inches 069 Inches [facility]
[2020-12-29] MEDS: HumaLOG INSULIN (NovoLOG) PER UNIT SC SCH (17:30)
--- NOTE | 2020-12-29 17:33 | HPEPDOC ---
[facility] Medical History & Physical Date of Admission Dec 29, 2020 Date of Service: Dec 29, 2020 Primary Care Physician: Shanae Trejo Attending Physician: HAKAN HAMILTON MD History and Physical CHIEF COMPLAINT: Increased urination / Increased Thirst / Elevated Glucose HISTORY OF PRESENT ILLNESS: Patient is a 70 yo male who presented to [facility] ED after being told to go there for elevated blood glucose. He reports about 2 weeks ago he noticed he was urinating and drinking more than usual. He went to his PCP on 12/22 and had lab work done showing he had diabetes with an A1C of 13.1. On Friday, 12/26 the lab work was repeated and the results were the same. He was brought into the office on 12/28 for instructions on how to use an insulin pen. Despite the instruction he has be en unable to take the medication as he cannot figure out how it works. He called the office back and they advised he go to the emergency department, on presentation he had a blood sugar in the 600s with an elevated creatinine that appears to be nearly unchanged compared to labs collected on 12/22. He received a 1 L IVF bolus with 10 U of insulin and the hospitalist service was subsequently contacted for admission. PAST MEDICAL HISTORY: Recently diagnosed T2DM HTN HLD Wagner's esophagus PAST SURGICAL HISTORY: L-testicle removed due to testicular pain (02/2020) SOCIAL HISTORY: Denies tobacco use. Admits to drinking beer every once in a while Denies marijuana, heroin, cocaine, PCP, or other illicit drug use. FAMILY HISTORY: Sister and mother with diabetes. ALLERGIES: Please see below. REVIEW OF SYSTEMS: Constitutional: Denies fevers, chills, night sweats, or recent unexpected weight change HEENT: Denies headaches, head trauma, admits to fuzzy/blurred vision, denies nosebleeds or difficulty swallowing. Cardiovascular: Denies chest pain, palpitations, or orthopnea. Respiratory: Denies cough, wheezing, or shortness of breath GI: Denies nausea, vomiting, abdominal pain, diarrhea, or constipation : Admits to polyuria and polydipsia, denies dysuria. Musculoskeletal: Denies joint pain or swelling Neuro/psych: Denies muscle weakness or sensory loss Skin: Denies skin rashes. Admits to some lower extremity swelling 10 point review of systems complete; all negative otherwise stated above HOME MEDICATIONS: Please see below. PHYSICAL EXAMINATION: VITAL SIGNS: See below GENERAL APPEARANCE: Well-appearing male who appears stated age sitting comfortably in bed in no acute distress HEENT: NC, AT, EOMI, PERRLA, no scleral icterus or conjunctivitis, moist mucous membranes, no pharyngeal erythema. CARDIOVASCULAR: Tachycardic rate, regular rhythm, normal S1-S2. No murmurs, ga llops, rubs. LUNGS: CTAB with full breath sounds, no wheezes, crackles, or rhonchi. ABDOMEN: Soft, non-tender, non-distended, bowel sounds present. No hepatosplenomegaly. No masses or ecchymosis. No CVA tenderness. EXTREMITIES: Trace pitting edema to the samano in bilateral lower extremities NEUROLOGICAL: No focal or sensory deficits. CN II-XII grossly intact. PSYCHIATRIC: Normal mood and affect LABORATORY DATA: See below. IMAGIN12/29/20 CXR: "IMPRESSION: No acute cardiopulmonary process appreciated." MICROBIOLOGY: Please see below. Assessment/Plan: Patient is a 70 yo male with newly diagnosed #. Hyperglycemia in setting of T2DM -A1c on 12/25 noted to be 13% -No signs of DKA. -Starting patient on 20U levemir, SSC, consistent carb diet -adult educator ordered #. ?Acute renal failure -S/p 1 L IVF in ED, will give IVF at 100ml/hr overnight -Baseline Cr unclear, it appears similar to what it was a week ago, will recheck in AM #. COVID+ -Patient incidentally found to be COVID+ on admission screening for same, not hypoxic, no covid symptoms, does not meet criteria for remdesivir or dexamethasone. Unvaccinated. -Meets criteria for monoclonal Ab treatment, patient consented. #. HTN -Holding home lisinopril/HCTZ in light of elevated creatinine #. Hyperlipidemia -Continue home Atorvastatin #. Hx of Wagner's esophagus -Continue home omeprazole DVT prophylaxis: Teds/Sqs Disposition:Observation CODE STATUS: FULL CODE Vital Signs Vital Signs Date Time Temp Pulse Resp B/P (MAP) Pulse Ox O2 Delivery O2 Flow Rate FiO2 12/29/20 14:14 96.4 91 18 123/60 (81) 97 Room Air Laboratory Data Labs 24H Laboratory Tests 2 12/29/20 11:10: Bedside Glucose (Misc Panel) 571*H 12/29/20 11:33: Immature Granulocyte % (Auto) 0.6, Neutrophils (%) (Auto) 65.0, Lymphocytes (%) (Auto) 21.5L, Monocytes (%) (Auto) 9.7H, Eosinophils (%) (Auto) 2.2, Basophils ( %) (Auto) 1.0, Neutrophils # (Auto) 5.0, Lymphocytes # (Auto) 1.7, Monocytes # (Auto) 0.8, Eosinophils # (Auto) 0.2, Basophils # (Auto) 0.1, Nucleated Red Blood Cells % (auto) 0.0, Anion Gap 9, Glomerular Filtration Rate 36.6L, Osmolality 320H, Calcium Level 9.7, Total Bilirubin 0.7, Direct Bilirubin 0.2, Aspartate Amino Transf (AST/SGOT) 14, Alanine Aminotransferase (ALT/SGPT) 25, Alkaline Phosphatase 121H, Total Protein 7.5, Albumin 3.7, Albumin/Globulin Ratio 1.0, Lipase 127, B-Hydroxybutyrate 20.49H 12/29/20 11:58: Urine Color STRAW, Urine Appearance CLEAR, Urine pH 5.0, Urine Specific [place] 1.023, Urine Protein NEGATIVE, Urine Glucose (UA) 3+H, Urine Ketones TRACEH, Urine Blood NEGATIVE, Urine Nitrite NEGATIVE, Urine Bilirubin NEGATIVE, Urine Urobilinogen 0.2, Urine Leukocyte Esterase NEGATIVE, Urine WBC (Auto) 1, Urine RBC (Auto) 1, Urine Hyaline Casts (Auto) 0, Urine Bacteria (Auto) NEGATIVE, Urine Squamous Epithelial Cells 1, Urine Sperm (Auto) , Blood Gas Bicarbonate Standard 23.0, Venous Blood pH 7.389, Venous Blood Partial Pressure CO2 38.7, Venous Blood Partial Pressure O2 112.6H, Venous Blood Total Carbon Dioxide 24.0, Venous Blood HCO3 22.8L, Venous Blood Oxygen Saturation 98.4H, Venous Blood Base Excess -1.8 12/29/20 15:36: Bedside Glucose (Misc Panel) 487H 12/29/20 16:30: Bedside Glucose (Misc Panel) 370H CBC/BMP Laboratory Tests 12/29/20 11:33 Home Medications Scheduled Atorvastatin Calcium (Atorvastatin Calcium) 20 Mg Tab, 20 MG PO QHS Calcium Carb/Magnesium Oxid/D3 (Calcium Magnesium + D Tablet) 1 Each Tablet, 1 TAB PO QHS zinc Cholecalciferol (Vitamin D3) (Vitamin D3) 1,000 Unit Tablet, 2,000 UNITS PO QHS Insulin Glargine,Hum.rec.anlog (Basaglar Kwikpen U-100) 100 Unit/1 Ml Insuln.pen, 19 UNITS SC QHS Lisinopril/Hydrochlorothiazide (Lisinopril-Hctz 10-12.5 mg Tab) 1 Each Tablet, 1 TAB PO QHS Multivitamins (Thera M Plus Tablet) 1 Each Tablet, 1 TAB PO QHS Omeprazole (Omeprazole) 40 Mg Capsule.dr, 40 MG PO QHS Allergies Coded Allergies: ENVIROMENTAL (Verified Allergy, Unknown, 05/26/20) GME ATTESTATION GME ATTESTATION My faculty preceptor for this patient encounter was physically present during the encounter and was fully available. All aspects of the patient interview, examination, medical decision making process, and medical care plan development were reviewed and approved by the faculty preceptor. The faculty preceptor is aware and concurs with the plan as stated in the body of this note and will attest to such by his/her cosignature. ATTENDING NOTE I, Hakan Hamilton, have independently examined this patient and performed my own physical exam, as well as reviewed the documentation and edited where necessary with the resident. For medical students we have performed the physical exam together and discussed medical decision making and I have verified the history. I have discussed in detail with the resident / student the findings and plan of treatment as documented by the resident / student and edited their note. I agree with their findings and treatment plan and have edited their documentation. I will continue to follow the patient during this hospital stay. DOROTHY CANNON DO Dec 29, 2020 17:33 HAKAN HAMILTON MD Dec 29, 2020 17:57
[2020-12-29] MEDS ORDERED: HOME MED LIST COMPLETE! XX SCH (17:50)
[2020-12-29 18:09] LABS: HEMOGLOBIN 13.2 g/dl (13.5-17.5); MEAN CORPUSCULAR HEMOGLOBIN 29.5 pg (27.0-33.0); MEAN CORPUSCULAR HGB CONC 34.7 g/dl (32.0-36.5); PLATELET COUNT, AUTOMATED 178 10^3/uL (150-450); RED BLOOD COUNT 4.47 10^6/uL (4.30-6.10)
[2020-12-29 18:14] LABS: RSV AMPLIFICATION NEGATIVE (NEGATIVE)
[2020-12-29] MEDS ORDERED: ALBUTEROL 90 MCG/ACT 8GM HFA INHALER INH PRN (18:30)
[2020-12-29] MEDS ORDERED: diphenhydrAMINE 50MG/ML VIAL (J1200) IV PRN (18:30)
[2020-12-29] MEDS ORDERED: EPINEPHrine INJ 1 MG/ML 1ML AMP IM PRN (18:30)
[2020-12-29] MEDS ORDERED: ALBUTEROL SULFATE 2.5 MG/0.5 ML INH NEB SOLN INH PRN (18:30)
[2020-12-29] MEDS ORDERED: methylPREDNISolone 125MG 2ML VIAL IV PRN (18:30)
[2020-12-29 18:47] LABS: CALCIUM LEVEL 9.4 MG/DL (8.8-10.2); CREATININE FOR GFR 1.7 MG/DL (0.70-1.30); GLOMERULAR FILTRATION RATE 42.6 (>42); POTASSIUM SERUM 4.7 MEQ/L (3.5-5.1)
[2020-12-29] MEDS ORDERED: HumaLOG INSULIN (NovoLOG) PER UNIT SC SCH (21:00)
[2020-12-29] MEDS ORDERED: NS 1,000 ML IV SCH (21:00)
[2020-12-29] MEDS ORDERED: LEVEMIR (INSULIN DETEMIR) 1 UNITS/0.01ML SC SCH (21:00)
[2020-12-29] MEDS ORDERED: OMEPRAZOLE 20 MG CAP PO SCH (21:00)
[2020-12-29] MEDS ORDERED: MULTIVITAMINS/MINERALS THERAP 1 TAB PO SCH (21:00)
[2020-12-29 21:06] VITALS: BP 143/76
[2020-12-29] MEDS ORDERED: methylPREDNISolone 40MG 1ML VIAL IV ONE (22:00)
[2020-12-29] MEDS ORDERED: diphenhydrAMINE 50MG/ML VIAL (J1200) IV ONE (22:00)
[2020-12-29] MEDS ORDERED: [UNRECOGNIZED DRUG - OTHER] IV ONE (22:30)
[2020-12-29 23:05] VITALS: BP 134/73
[2020-12-29 23:35] VITALS: BP 128/59
[2020-12-30] VITALS: BP 128/59
[2020-12-30 00:39] VITALS: BP 166/76
[2020-12-30 01:29] VITALS: BP 146/67
[2020-12-30 04:00] VITALS: BP 149/79
--- NOTE | 2020-12-30 08:09 | ECGEPIP ---
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
[2020-12-30] MEDS: HumaLOG INSULIN (NovoLOG) PER UNIT SC SCH ×2 (08:19→12:00)
[2020-12-30 08:40] LABS: HEMATOCRIT 37.3 % (42.0-52.0); HEMOGLOBIN 12.6 g/dl (13.5-17.5); MEAN CORPUSCULAR HEMOGLOBIN 29.1 pg (27.0-33.0); MEAN CORPUSCULAR HGB CONC 33.8 g/dl (32.0-36.5); MEAN CORPUSCULAR VOLUME 86.1 fl (80.0-96.0); PLATELET COUNT, AUTOMATED 179 10^3/uL (150-450); RED BLOOD COUNT 4.33 10^6/uL (4.30-6.10); WHITE BLOOD COUNT 7.5 10^3/uL (4.0-10.0)
[2020-12-30] MEDS ORDERED: ENOXAPARIN 40MG/0.4ML SYRINGE (J1650 PER 10MG) SC SCH (09:00)
[2020-12-30] MEDS ORDERED: ATORVASTATIN 20 MG TAB PO SCH (09:00)
[2020-12-30 09:05] LABS: CREATININE FOR GFR 1.5 MG/DL (0.70-1.30); GLOMERULAR FILTRATION RATE 49.3 (>42); POTASSIUM SERUM 5.3 MEQ/L (3.5-5.1)
[2020-12-30] MEDS ORDERED: AMLO1TAB24 PO (09:53)
--- NOTE | 2020-12-30 10:00 | DS.PDOC ---
Discharge Summary General Date of Admission Dec 29, 2020 at 11:02 Date of Discharge 12/30/20 Primary Care Physician: Shanae Trejo Attending Physician: HAKAN HAMILTON MD Discharge Summary PROCEDURES PERFORMED DURING STAY: None. ADMITTING/DISCHARGE DIAGNOSES: Hyperglycemia Type 2 diabetes (A1c 13%) Acute on chronic CKD (baseline CR 1.5) COVID-19 s/p monoclonal antibody therapy Suspected TREASURE? Hypertension Hyperlipidemia History of Wagner's esophagus COMPLICATIONS/CHIEF COMPLAINT: Hyperglycemia HISTORY OF PRESENT ILLNESS/HOSPITAL COURSE: Patient is a 70 yo male who presented to [facility] ED after being told to go there for elevated blood glucose. He reports about 2 weeks ago he noticed he was urinating and drinking more than usual. He went to his PCP on 12/22 and had lab work done showing he had diabetes with an A1C of 13.1. On Friday, 12/26 the lab work was repeated and the results were the same. He was brought into the office on 12/28 for instructions on how to use an insulin pen. Despite the instruction he has been unable to take the medication as he cannot figure out how it works. He called the office back and they advised he go to the emergency department, on presentation he had a blood sugar in the 600s with an elevated creatinine that appears to be nearly unchanged compared to labs collected on 12/22. He received a 1 L IVF bolus with 10 U of insulin and the hospitalist service was subsequently contacted for admission. Patient was found to be Covid 19+ on admission and was consented for monoclonal antibody treatment which he tolerated adequately. Patient was given instructions to comply with department of health regulations regarding his COVID-19 infection and instructions to follow-up with his primary care as soon as this was c ompleted. He was started on 20 units of Levemir overnight given his hyperglycemia and was given IV fluids overnight in light of his acute renal failure with return to baseline creatinine in the morning of 1.5. His baseline was confirmed based on outpatient labwork form 09/20/2020 from [facility]. His lisinopril and hydrochlorothiazide were discontinued and he was started on amlodipine 5 mg with instructions to not resume the lisinopril and hydrochlorothiazide until he followed up with his primary care provider. He was also given further education on how to use the insulin pen by nursing staff and was sent home with his home dose of 20 units of Basaglar BID and Glipizide 5 daily. Patient felt comfortable with discharge home. Patient had some elevation of his Glucose on 12/30 AM, likely as a result from a single dose of corticosteroid. Of note, patient experienced desaturation overnight, however when he is awake he has no oxygen requirements, he was counseled that he may require testing for TREASURE. DISCHARGE MEDICATIONS: Please see below. ALLERGIES: Please see below. PHYSICAL EXAMINATION ON DISCHARGE: VITAL SIGNS: Please see below. GENERAL APPEARANCE: Well-appearing male who appears stated age sitting comfortably in bed in no acute distress HEENT: NC, AT, EOMI, PERRLA, no scleral icterus or conjunctivitis, moist mucous membranes, no pharyngeal erythema. CARDIOVASCULAR: RRR, normal S1-S2. No murmurs, gallops, rubs. LUNGS: CTAB with full breath sounds, no wheezes, crackles, or rhonchi. ABDOMEN: Soft, non-tender, non-distended, bowel sounds present. No hepatosp lenomegaly. No masses or ecchymosis. No CVA tenderness. EXTREMITIES: Trace pitting edema to the samano in bilateral lower extremities NEUROLOGICAL: No focal or sensory deficits. CN II-XII grossly intact. PSYCHIATRIC: Normal mood and affect LABORATORY DATA: Please see below. IMAGIN12/29/20 CXR: "IMPRESSION: No acute cardiopulmonary process appreciated." ACTIVITY: As tolerated DIET: Consistent carbohydrate diet DISCHARGE PLAN: Home DISPOSITION: 01 Home, Self-Care. DISCHARGE INSTRUCTIONS: 1. Do not restart your lisinopril/hydrochlorothiazide until you follow up with your primary care. Please follow up with primary care next week for further education about diabetes and titration of your medications. Please remain compliant with your medications and return to the hospital if your symptoms worsen. Please remain compliant with [facility] quarantine regulations regarding your COVID-19 status and do not go out in public until cleared to do so by the department of health. ITEMS TO FOLLOW UP ON: 1. TREASURE TESTING DISCHARGE CONDITION: Stable. TIME SPENT ON DISCHARGE: 25 minutes. Vital Signs/I&Os Vital Signs Date Time Temp Pulse Resp B/P (MAP) Pulse Ox O2 Delivery O2 Flow Rate FiO2 12/30/20 06:14 3.0 12/30/20 04:00 96.5 100 20 149/79 (102) 97 Room Air I&O- Last 24 Hours up to 6 AM 12/30/20 05:59 Intake Total 2000 ml Output Total 445 ml Balance 1555 ml Laboratory Data Labs 24H Laboratory Tests 2 12/29/20 11:10: Bedside Glucose (Misc Panel) 571*H 12/29/20 11:33: Immature Granulocyte % (Auto) 0.6, Neutrophils (%) (Auto) 65.0, Lymphocytes (%) (Auto) 21.5L, Monocytes (%) (Auto) 9.7H, Eosinophils (%) (Auto) 2.2, Basophils (%) (Auto) 1.0, Neutrophils # (Auto) 5.0, Lymphocytes # (Auto) 1.7, Monocytes # (Auto) 0.8, Eosinophils # (Auto) 0.2, Basophils # (Auto) 0.1, Nucleated Red Blood Cells % (auto) 0.0, Anion Gap 9, Glomerular Filtration Rate 36.6L, Osmolality 320H, Calcium Level 9.7, Total Bilirubin 0.7, Direct Bilirubin 0.2, Aspartate Amino Transf (AST/SGOT) 14, Alanine Aminotransferase (ALT/SGPT) 25, Alkaline Phosphatase 121H, Total Protein 7.5, Albumin 3.7, Albumin/Globulin Ratio 1.0, Lipase 127, B-Hydroxybutyrate 20.49H 12/29/20 11:58: Urine Color STRAW, Urine Appearance CLEAR, Urine pH 5.0, Urine Specific Enders 1.023, Urine Protein NEGATIVE, Urine Glucose (UA) 3+H, Urine Ketones TRACEH, Urine Blood NEGATIVE, Urine Nitrite NEGATIVE, Urine Bilirubin NEGATIVE, Urine Urobilinogen 0.2, Urine Leukocyte Esterase NEGATIVE, Urine WBC (Auto) 1, Urine RBC (Auto) 1, Urine Hyaline Casts (Auto) 0, Urine Bacteria (Auto) NEGATIVE, Urine Squamous Epithelial Cells 1, Urine Sperm (Auto) , Blood Gas Bicarbonate Standard 23.0, Venous Blood pH 7.389, Venous Blood Partial Pressure CO2 38.7, Venous Blood Partial Pressure O2 112.6H, Venous Blood Total Carbon Dioxide 24.0, Venous Blood HCO3 22.8L, Venous Blood Oxygen Saturation 98.4H, Venous Blood Base Excess -1.8 12/29/20 15:36: Bedside Glucose (Misc Panel) 487H 12/29/20 16:30: Bedside Glucose (Misc Panel) 370H 12/29/20 17:18: Coronavirus (COVID-19)(PCR) POSITIVEA, Influenza Type A (RT-PCR) NEGATIVE, Influenza Type B (RT-PCR) NEGATIVE, Respiratory Syncytial Virus (PCR) NEGATIVE 12/29/20 17:58: Nucleated Red Blood Cells % (auto) 0.0, Anion Gap 7L, Glomerular Filtration Rate 42.6, Calcium Level 9.4 12/29/20 20:53: Bedside Glucose (Misc Panel) 431H 12/30/20 06:26: Bedside Glucose (Misc Panel) 376H 12/30/20 07:43: Nucleated Red Blood Cells % (auto) 0.0, Anion Gap 8, Glomerular Filtration Rate 49.3, Calcium Level 9.0 12/30/20 08:13: Bedside Glucose (Misc Panel) 343H CBC/BMP Laboratory Tests 12/29/20 11:33 12/29/20 17:58 12/30/20 07:43 FSBS Laboratory Tests Test 12/29/20 11:10 12/29/20 15:36 12/29/20 16:30 12/29/20 20:53 Range/Units Bedside Glucose (Misc Panel) 571 487 370 431 83-110 MG/DL Test 12/30/20 06:26 12/30/20 08:13 Range/Units Bedside Glucose (Misc Panel) 376 343 83-110 MG/DL Discharge Medications Scheduled Amlodipine Besylate (Amlodipine Besylate) 5 Mg Tablet, 1 TAB PO DAILY Atorvastatin Calcium (Atorvastatin Calcium) 20 Mg Tab, 20 MG PO QHS, (Reported) Calcium Carb/Magnesium Oxid/D3 (Calcium Magnesium + D Tablet) 1 Each Tablet, 1 TAB PO QHS, (Reported) zinc Cholecalciferol (Vitamin D3) (Vitamin D3) 1,000 Unit Tablet, 2,000 UNITS PO QHS, (Reported) Glipizide (Glipizide ER) 5 Mg Tab.er.24, 1 TAB PO DAILY Insulin Glargine,Hum.rec.anlog (Basaglar Kwikpen U-100) 100 Unit/1 Ml Insuln.pen, 20 UNITS SC BID vial=Pen. Please inject 20 units twice daily subcutaneously. Multivitamins (Thera M Plus Tablet) 1 Each Tablet, 1 TAB PO QHS, (Reported) Omeprazole (Omeprazole) 40 Mg Capsule.dr, 40 MG PO QHS, (Reported) Allergies Coded Allergies: ENVIROMENTAL (Verified Allergy, Unknown, 05/26/20) GME ATTESTATION GME ATTESTATION My faculty preceptor for this patient encounter was physically present during the encounter and was fully available. All aspects of the patient interview, examination, medical decision making process, and medical care plan development were reviewed and approved by the faculty preceptor. The faculty preceptor is aware and concurs with the plan as stated in the body of this note and will attest to such by his/her cosignature. ATTENDING NOTE I, Hakan Hamilton, have independently examined this patient and performed my own physical exam, as well as reviewed the documentation and edited where necessary with the resident. For medical students we have performed the physical exam together and discussed medical decision making and I have verified the history. I have discussed in detail with the resident / student the findings and plan of treatment as documented by the resident / student and edited their note. I agree with their findings and treatment plan and have edited their documentation. I will continue to follow the patient during this hospital stay. Time spent on discharge 25 minutes DOROTHY CANNON DO Dec 30, 2020 10:00 HAKAN HAMILTON MD Dec 30, 2020 11:01
[2020-12-30] MEDS ORDERED: GLIP5TAB20 PO (11:05)
[2020-12-30] MEDS ORDERED: HumuLIN R (REGULAR) INSULIN (NovoLIN R) **100U/ML** PER UNIT SC ONE (12:15)
[2020-12-30] MEDS ORDERED: BASA100I SC ×2 (12:19→15:08)
[2020-12-30] MEDS ORDERED: LANC30MI XX (18:16)
[2020-12-30] MEDS ORDERED: ALCOPAD25 TOP (18:16)
[2020-12-30] MEDS ORDERED: GLUC1TES2 XX (18:16)
[2020-12-30] MEDS ORDERED: BLOOKIT21 XX (18:16)
== END 2020-12-30 16:03 | disposition home health service (06) ==
LOC: M ED 11:01 → M ED INP 11:02 → M 4MAIN 21:15
PROVIDERS: ADMIT Internal Medicine; ATTEND Internal Medicine
DX: E11.65 Type 2 diabetes mellitus with hyperglycemia (principal); N17.9 Acute kidney failure, unspecified; N18.9 Chronic kidney disease, unspecified; U07.1 COVID-19; E78.5 Hyperlipidemia, unspecified; Z79.4 Long term (current) use of insulin; Z79.899 Other long term (current) drug therapy; K22.719 Barrett's esophagus with dysplasia, unspecified
CPT/HCPCS: 36415; 71045; 80048; 80076; 81001; 82010; 82803; 82947; 83690; 83930; 85025; 85027; 87631; 93005; 93041; 96361; 96365; 96374; 96375; 99285; G0378; J1200; J2920

== ENCOUNTER → 2021-01-08 | Outpatient (REF) | payer MEDICARE ==
[~2021-01-08] MED LIST changes: +ALCOPAD25 TOP; +AMLO1TAB24 PO; +BASA100I SC; +BLOOKIT21 XX; +GLIP5TAB20 PO; +GLUC1TES2 XX; +LANC30MI XX; -LISI10TA15 PO; +LISI10TA24 PO; -lisinopriL 40 MG TAB PO SCH
[2021-01-08 18:54] LABS: APPEARANCE, URINE CLEAR (CLEAR); BACTERIA, URINE AUTO NEGATIVE (NEGATIVE); BILIRUBIN, URINE AUTO NEGATIVE (NEGATIVE); BLOOD, URINE BLOOD NEGATIVE (NEGATIVE); COLOR, URINE YELLOW (YELLOW); GLUCOSE, URINE (UA) AUTO 3+ mg/dL (NEGATIVE); KETONE, URINE AUTO TRACE mg/dL (NEGATIVE); LEUKOCYTE ESTERASE, URINE AUTO NEGATIVE (NEGATIVE); MUCUS, URINE SMALL (NEGATIVE); NITRITE, URINE AUTO NEGATIVE (NEGATIVE); PROTEIN, URINE AUTO NEGATIVE (NEGATIVE); RBC, URINE AUTO 0 /HPF (0-3); SQUAMOUS EPITHELIAL CELL UR AU 0 /HPF (0-6); WBC, URINE AUTO 1 /HPF (0-3)
== END ==
LOC: M SMT 16:54
PROVIDERS: ATTEND Nurse Practitioner Women's Health
DX: R35.0 Frequency of micturition (principal)

== ENCOUNTER → 2021-01-24 | Outpatient (CLI) | payer MEDICARE ==
[~2021-01-24] MED LIST changes: +LISI10TA15 PO; -LISI10TA24 PO
--- NOTE | 2021-01-24 17:14 | REP ---
INDICATION: SCROTAL PAIN, GROIN PAIN COMPARISON: None. TECHNIQUE: Directed B-mode ultrasound examination using linear high-frequency transducer. FINDINGS: Ultrasound examination of the right groin demonstrates no obvious abnormality. No fluid collection, mass lesion, adenopathy, or evidence for hernia. IMPRESSION: No obvious abnormality to the right groin. <Electronically signed by Berhane Oliveira > 01/24/21 [id number]
--- NOTE | 2021-01-24 17:39 | REP ---
INDICATION: SCROTAL PAIN, GROIN PAIN COMPARISON: None. TECHNIQUE: Hernández scale and color Doppler evaluation using linear and curved array transducer with color Doppler evaluation. FINDINGS: Evidence for prior left orchiectomy. Right testicle is normal in appearance and vascularity without torsion, infectious/inflammatory process, or mass. Incidental 3.8 x 1.5 x 2.4 cm complex cyst at the epididymis along with small hydrocele. Right testicle measures 4.0 x 2.4 x 3.6 cm.. IMPRESSION: Complex cyst involving the epididymis. <Electronically signed by Berhane Oliveira > 01/24/21 [id number]
== END ==
LOC: M RAD 15:40
PROVIDERS: ATTEND Nurse Practitioner Women's Health
DX: N50.819 Testicular pain, unspecified (principal); R10.30 Lower abdominal pain, unspecified

== ENCOUNTER 2023-06-05 12:52 | Emergency (ER) | payer MEDICARE ==
[~2023-06-05] VITALS: Ht 175.3 cm; Wt 88.7 kg
[~2023-06-05 12:52] MED LIST changes: -D31000TA2 PO; -LISI10TA15 PO; +LISI10TA24 PO; +VITA100093 PO
[2023-06-05 12:53] VITALS: TEMP 98.3
[2023-06-05] MEDS ORDERED: NITROGLYCERIN 0.4MG SUBL TABLET SL PRN (13:20)
[2023-06-05 13:36] LABS: BASO # 0.1 10^3/uL (0.0-0.2); BASO % 1.4 % (0.0-1.0); EOS # 0.2 10^3/uL (0.0-0.5); HEMATOCRIT 44.4 % (42.0-52.0); HEMOGLOBIN 14.9 g/dl (13.5-17.5); LYMPH % 28.2 % (24.0-44.0); MEAN CORPUSCULAR HGB CONC 33.6 g/dl (32.0-36.5); MEAN CORPUSCULAR VOLUME 89.5 fl (80.0-96.0); MONO # 0.6 10^3/uL (0.0-0.8); MONO % 8.2 % (2.0-8.0); NEUTROPHILS # 4.1 10^3/uL (1.5-8.5); NEUTROPHILS % 58.8 % (36.0-66.0); PLATELET COUNT, AUTOMATED 200 10^3/uL (150-450); RED BLOOD COUNT 4.96 10^6/uL (4.30-6.10)
[2023-06-05] MEDS: ASPIRIN 81MG CHEW TABLET PO ONE (13:36)
[2023-06-05] MEDS ORDERED: LISI5TAB11 PO (13:43)
[2023-06-05 14:09] LABS: ALBUMIN 3.7 G/DL (3.2-5.2); ALKALINE PHOSPHATASE 75 U/L (46-116); ALT/SGPT 16 U/L (7.0-40); AST/SGOT 17 U/L (<34); BILIRUBIN,DIRECT 0.2 MG/DL (<0.4); BILIRUBIN,TOTAL 0.5 MG/DL (0.3-1.2); BLOOD UREA NITROGEN 19 MG/DL (9-23); CALCIUM LEVEL 9.5 MG/DL (8.3-10.6); CARBON DIOXIDE LEVEL 26 MMOL/L (20-31); CHLORIDE LEVEL 108 MMOL/L (98-107); CK-MB VALUE MASS 1.2 NG/ML (<3.6); CREATININE FOR GFR 0.99 MG/DL (0.70-1.30); GLOMERULAR FILTRATION RATE > 60.0 (>42); GLUCOSE, FASTING 105 MG/DL (74-106); POTASSIUM SERUM 4.1 MMOL/L (3.5-5.1); SODIUM LEVEL 141 MMOL/L (136-145); TOTAL PROTEIN 6.6 G/DL (5.7-8.2)
[2023-06-05 14:11] LABS: CPK CREATINE PHOSPHOKINASE 86 U/L (46-171); INR 0.97; MB/CK RELATIVE INDEX 1.39 (< OR =4); PARTIAL THROMBOPLASTIN TIME 28.1 SECONDS (24.8-34.2); PROTHROMBIN TIME 12.6 SECONDS (12.5-14.5)
[2023-06-05] MEDS ORDERED: ISOVUE-370 76% 100ML VIAL As Ordered ONE (14:32)
[2023-06-05] MEDS ORDERED: NYST-13 TOP (14:44)
[2023-06-05] MEDS ORDERED: MULTTAB86 PO (14:44)
[2023-06-05] MEDS ORDERED: BASA100I SC (14:45)
[2023-06-05] MEDS ORDERED: HOME MED LIST COMPLETE! XX SCH (14:50)
[2023-06-05 15:18] LABS: MB/CK RELATIVE INDEX 1.21 (< OR =4)
[2023-06-05 16:00] VITALS: BP 145/74; O2SAT 99
== END 2023-06-05 16:06 | disposition home or self-care (01) ==
LOC: M ED 12:52
DX: R07.9 Chest pain, unspecified (principal); E11.9 Type 2 diabetes mellitus without complications; I10 Essential (primary) hypertension; E78.5 Hyperlipidemia, unspecified; Z79.899 Other long term (current) drug therapy
CPT/HCPCS: 71045; 71275; 80048; 80076; 82550; 82553; 84484; 85025; 85610; 85730; 93005; 93041; 94760; 99285; Q9967

== ENCOUNTER → 2023-06-09 | Outpatient (REF) | payer MEDICARE ==
[~2023-06-09] MED LIST changes: +LISI5TAB11 PO; +MULTTAB86 PO; +NYST-13 TOP
== END ==
LOC: M LAB REF 16:17
PROVIDERS: ATTEND Nurse Practitioner Family
DX: L02.91 Cutaneous abscess, unspecified (principal)

== ENCOUNTER → 2025-01-19 | Outpatient (REF) | payer MEDICARE ==
[~2025-01-19] MED LIST changes: +GLIP-318 PO; -GLIP5TAB20 PO; -NYST-13 TOP; +NYST0.1C TOP
[2025-01-19 19:59] LABS: TOTAL PROTEIN,RANDOM URINE 6.7 MG/DL (0.0-14.0)
[2025-01-22 09:43] LABS: PROTEIN, TOTAL SO 6.6 g/dL (6.1-8.1)
== END ==
LOC: M LAB REF 16:43
PROVIDERS: ATTEND Internal Medicine Nephrology
DX: R31.21 Asymptomatic microscopic hematuria (principal); N18.2 Chronic kidney disease, stage 2 (mild)

== ENCOUNTER → 2025-02-07 | Outpatient (CLI) | payer MEDICARE ==
[~2025-02-07] MED LIST changes: +ISOVUE-370 76% 100 ML VIAL ONE
== END ==
LOC: M PLAIMG 14:08
PROVIDERS: ATTEND Internal Medicine Nephrology
DX: R31.1 Benign essential microscopic hematuria (principal)
CPT/HCPCS: 74178; Q9967